=== PATIENT | male | born 1945 | race Caucasian/White ===

== ENCOUNTER 2022-07-30 12:56 | Outpatient (CLI) | payer MEDICARE, BC, SELFPAY | END 2022-07-30 12:57 | disposition home or self-care (01) | PROVIDERS: PCP Family Medicine; Visit Provider Family Medicine | DX: M54.16 Radiculopathy, lumbar region (principal); M51.36 Other intervertebral disc degeneration, lumbar region | CPT/HCPCS: 64483; 64484; J1100; Q9966 ==

== ENCOUNTER 2023-11-04 09:27 | Outpatient (CLI) | payer MEDICARE, BC, SELFPAY | END 2023-11-04 09:28 | disposition home or self-care (01) | LOC: INJ CL 09:29 | PROVIDERS: PCP Family Medicine; Visit Provider Family Medicine | DX: M54.16 Radiculopathy, lumbar region (principal); M51.36 Other intervertebral disc degeneration, lumbar region | CPT/HCPCS: 64483; 64484; J1100; Q9966 ==

== ENCOUNTER 2024-03-19 13:45 | Outpatient (CLI) | payer MEDICARE, BC, SELFPAY | END 2024-03-19 13:46 | disposition home or self-care (01) | LOC: INJ CL 13:45 | PROVIDERS: Visit Provider Family Medicine | DX: M54.16 Radiculopathy, lumbar region (principal); M51.36 Other intervertebral disc degeneration, lumbar region | CPT/HCPCS: 64483; 64484; J1100; Q9966 ==

== ENCOUNTER 2024-10-05 09:24 | Outpatient (CLI) | payer MEDICARE, BC, SELFPAY | END 2024-10-05 09:25 | disposition home or self-care (01) | LOC: INJ CL 09:26 | PROVIDERS: Visit Provider Family Medicine | DX: M54.16 Radiculopathy, lumbar region (principal); M51.369 Other intervertebral disc degeneration, lumbar region without mention of lumbar back pain or lower extremity pain | CPT/HCPCS: 64483; 64484; J1100; Q9966 ==

== ENCOUNTER 2025-03-01 12:45 | Outpatient (CLI) | payer MEDICARE, BC, SELFPAY | END 2025-03-01 12:46 | disposition home or self-care (01) | LOC: INJ CL 12:47 | PROVIDERS: Visit Provider Family Medicine | DX: M54.16 Radiculopathy, lumbar region (principal); M51.369 Other intervertebral disc degeneration, lumbar region without mention of lumbar back pain or lower extremity pain | CPT/HCPCS: 64483; 64484; Q9966 ==

== ENCOUNTER 2025-03-17 08:19 | Emergency (ER) | payer MEDICARE, BC, SELFPAY ==
--- OUTSIDE RECORDS SUMMARY | 2025-03-04 11:00 | XMS_ITS | Encounter Summary ---
Author Organization [facility] Address [address] [place] [id number] Care Team Providers Care Voice Pathologist Name Role Phone Tiffanie Weston M.D. Primary Care Provider [phone] Reason for Visit * Reason Onset Date Comments Pre-visit Intake 03/04/2025 * Appointment Request (Routine) - Authorized Specialty Diagnoses / Procedures Referred By Mj garcia Referred To Contact Cardiovascular Disease Referral ID Status Reason Start Date Expiration Date V isits Requested Visits Authorized [id number] Authorized 12/13/2024 03/15/2026 1 1 Encounter Details Date Type Department Care Team (Latest Contact Info) Description 03/04/2025 11:00 AM CDT Clinical Communication Virtual Review in [place], [place] [address] [place] [address] Pre-visit Intake Social History Tobacco Use Types Packs/Day Years Used Date Smoking Tobacco: Former Cigarettes 1.5 28.1 0 11/09/1965 - 12/08/1991 Passive Smoke Exposure: Past Smokeless Tobacco: Former Chew Quit: 12/08/1991 Tobacco Cessation:Counseling Given: Not Answered Alcohol Use Standard Drinks/Week Comments Yes 6 (1 standard drink = 0.6 oz pure alcohol) I enjoy a drink once and a while [facility] Utilities Answer Date Recorded In the past 12 months has th e [employer], gas, oil, or water company threatened to shut off services in your home? No 05/10/2024 Humiliation, Afraid, Rape, and Kick questionnair e Answer Date Recorded Within the last year, have y ou been afraid of your partner or ex-partner? No 01/07/2024 Within the last year, have y ou been humiliated or emotionally abused in other ways by your partner or ex-partner? No Within the last year, have y ou been kicked, hit, slapped, or otherwise physically hurt by your partner or ex-partner? No 01/07/2024 Within the last year, have y ou been raped or forced to have any kind of sexual activity by your partner or ex-partner? No 01/07/2024 Hunger Vital Sign Answer Date Recorded Within the past 12 months, y ou worried that your food would run out before you got the money to buy more. Never true 05/10/20 24 Within the past 12 months, t he food you bought just didn't last and you didn't have money to get more. Never true 05/10/2024 PRAPARE - Transportation Answer Date Re corded In the past 12 months, has l ack of transportation kept you from medical appointments or from getting medications? No 04/13 In the past 12 months, has l ack of transportation kept you from meetings, work, or from getting things needed for daily living? No 05/10/2024 Housing Stability Answer Date Recorded What is your living situation today? I have a [facility] place to live 05/10/2024 Education Answer Date Recorded What is the highest level of school you have completed or the highest degree you have received? 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 [address] [place] [phone] 05/19/2025 11:00 AM CDT Appointment Department of Radiology in [address] [phone] Natalie Holland APRN, C.N.Moises., M.S.N. [address] [place] [phone] Discharge Disposition: Home or Self Care 05/20/2025 8:45 AM CDT Clinical Communication Virtual Review in [address] [phone] 06/02/2025 9:00 AM CDT Virtual Visit Department of Urology in [place], [place] [address] [place] [phone] Natalie Holland APRN, C.N.P., M.S.N. [address] [place] [phone] documented as of this encounter Visit Diagnoses Not on filedocumented in this encounter Care Teams Voice Pathologist Relationship Specialty Start Date End Date Tiffanie Weston M.D. [address] [place] [phone] PCP - General Family Medicine 09/06/24 documented as of this encounter
--- OUTSIDE RECORDS SUMMARY | 2025-03-08 07:58 | XMS_ITS | Encounter Summary ---
Author Organization [facility] Address [address] [place] [address] Care Team Providers Care Claim Processing Specialist Name Role Phone Tiffanie Weston M.D. Primary Care Provider Encounter Details Date Type Department Care Team (Latest Contact Info) Description 03/08/2025 7:58 AM CDT - 03/08/2025 9:49 AM CDT Hospital Encounter Department of Laboratory Medicine and Pathology, [facility] in [place], [place] [address] [place] [address] Erwin Payne M.D. [address] [place] [address] Cardiomyopathy Dilated (HCC) Discharge Disposition: Home or Self Care Social History Tobacco Use Types Packs/Day Years Used Date Smoking Tobacco: Former Cigarettes 1.5 28.1 0 11/09/1965 - 12/08/1991 Passive Smoke Exposure: Past Smokeless Tobacco: Former Chew Quit: 12/08/1991 Alcohol Use Standard Drinks/Week Comments Yes 6 (1 standard drink = 0.6 oz pure alcohol) I enjoy a drink once and a while [facility] Utilities Answer Date Recorded In the past 12 months has e [employer], gas, oil, or water [employer] threatened to shut off services in your [...] your living situation today? I have a [facility] place to live 05/10/2024 Education Answer Date Recorded What is the highest level of school you have completed or the highest degree you have received? 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 budesonide 0.6 mg capsule / nasal rinse Empty the contents of 1 capsule in 8 oz of saline using a clean sinus rinse bottle. Irrigate each nostril two times daily.Do not swallow capsules 180 capsule 3 01/14/2024 cetirizine (ZyrTEC) 10 mg tablet Take 10 mg by mouth as needed. cholecalciferol, vitamin D3, 25 mcg (1,000 Unit) tablet Take 25 mcg by mouth daily. gabapentin (Neurontin) 300 mg capsule Take 300-600 mg by mouth. 09/23/2024 meclizine (Antivert) 25 mg tablet Take 1 tablet (25 mg total) by mouth 3 (three) times a day as needed for dizziness. 30 tablet 11/01/2024 multivitamin capsule Take 1 capsule by mouth every other day. Men's One a day mupirocin (Bactroban) 2 % ointment ADD 1 INCH RIBBON TO NASAL RINSE BOTTLE TWICE DAILY 22 g 3 07/09/2024 mupirocin (Bactroban) 2 % ointment Apply 1 Application topically 2 (two) times a day for [address] 1 inch ribbon in 8oz of warm saline in rinse bottle. 30 g 2 02/21/2025 sodium chloride-sodium bicarbonate (NEILMED SINUS RINSE) nasal rinse Administer 1 Application into each nostril as needed for congestion. Use water that is either sterile, distilled, or previously boiled for preparations; do not use tap water. 11/24/2023 spironolactone (Aldactone) 25 mg tablet TAKE 1 TABLET DAILY 90 tablet 3 11/15/2024 tadalafiL (Cialis) 5 mg tablet Take 1 tablet (5 mg total) by mouth daily. Can take up to 20 mg 1 hour prior prior to anticipated sexual activity. Do not exceed 20 mg in 24 hours. 90 tablet 3 05/01/2023 vitamin E 180 mg (400 Unit) capsule Take 180 mg by mouth every other day. finasteride (Proscar) 5 mg tablet Take 1 tablet (5 mg total) by mouth daily. 90 tablet 3 09/01/2024 5 lisinopriL 10 mg tablet TAKE 1 TABLET DAILY 90 tablet 3 12/13/2024 5 tamsulosin (Flomax) 0.4 mg 24 hr capsule Take 1 capsule (0.4 mg total) by mouth daily. 90 capsule 3 09/01/2024 5 documented as of this encounter Plan of Treatment Upcoming Encounters Date Type Department Care Team (Latest Contact Info) Description 05/19/2025 10:10 AM CDT Appointment Department of Laboratory Medicine in [address] [phone] Natalie Holland APRN C.N.P., M.S.N. [address] [place] [phone] 05/19/2025 11:00 AM CDT Appointment Department of Radiology in [address] [phone] Natalie Holland APRN, C.N.P., M.S.N. [address] [place] [phone] Discharge Disposition: Home or Self Care 05/20/2025 8:45 AM CDT Clinical Communication Virtual Review in [address] [phone] 06/02/2025 9:00 AM CDT Virtual Visit Department of Urology in [place], [place] [address] [place] [phone] Natalie Holland APRN, C.N.P., M.S.N. [address] [place] [phone] documented as of this encounter Procedures Procedure Name Priority Date/Time Associated Diagnosis Comments NT-PRO B-TYPE NATRIURETIC PEPTIDE (BNP), S Routine 03/08/2025 8:10 AM CDT Cardiomyopathy Dilated (HCC) BUN (BLOOD UREA NITROGEN), S/P Routine 03/08/2025 8:10 AM CDT Cardiomyopathy Dilated (HCC) SODIUM, S/P Routine 03/08/2025 8:10 AM CDT Cardiomyopathy Dilated (HCC) POTASSIUM, S/P Routine 03/08/2025 8:10 AM CDT Cardiomyopathy Dilated (HCC) CREATININE WITH EGFR, S/P Routine 03/08/2025 8:10 AM CDT Cardiomyopathy Dilated (HCC) BICARBONATE, B/S/P Routine 03/08/2025 8: 10 AM CDT Cardiomyopathy Dilated (HCC) documented in this encounter Results * NT-Pro B-Type Natriuretic Peptide (BNP) (03/08/2025 8:10 AM CDT) Pathologist [facility] NT-Pro BNP 195 <=540 pg/mL 03/08/2025 10:28 AM CDT DTL Comment: NT-proBNP values less than 300 pg/mL have a 99% negative predictive value for excluding acute congestive heart failure. A cutoff of 1200 pg/mL for patients with an eGFR<60 yields a diagnostic sensitivity and specificity of 89% and 72% for acute congestive heart failure. A diagnostic NT-proBNP cutoff of 1800 pg/mL has been suggested in adults over 75 years of age in the absence of renal failure. Blood (Blood, Venous) 03/08/2025 8:10 AM CDT 03/08/2025 8:35 AM CDT us Erwin Payne M.D. LAB BLOOD ADD-ON Final Re sult [facility] [address] [place] [address], [place] DTL [facility] [address] [place] [address] * Potassium (03/08/2025 8:10 AM CDT) Potassium, S 4.5 3.6 - 5.2 mmol/L 03/08/2025 10:28 AM CDT DTL Blood (Blood, Venous) 03/08/2025 8:10 AM CDT 03/08/2025 8:35 AM CDT us Erwin Payne M.D. LAB BLOOD ADD-ON Final Re sult [facility] [address] 200 [place] [address] * Bicarbonate (03/08/2025 8:10 AM CDT) Bicarbonate, S 24 22 - 29 mmol/L 03/08/2025 10:28 AM CDT DTL Blood (Blood, Venous) 03/08/2025 8:10 AM CDT 03/08/2025 8:35 AM CDT Erwin Payne M.D. LAB BLOOD ADD-ON Final Re sult Performing Organization Address [facility] Co de Phone Number [facility] 200 [place], [place] [address] [place] [address] 200 [place] [address] * BUN (Blood Urea Nitrogen) (03/08/2025 8:10 AM CDT) Pathologist [facility] BUN (Blood Urea Nitrogen), S 18 8 - 24 mg/dL 03/08/2025 10:28 AM CDT DTL Blood (Blood, Venous) 03/08/2025 8:10 AM CDT 03/08/2025 8:35 AM CDT us Erwin Payne M.D. LAB BLOOD ADD-ON Final Re sult Performing Organization Address City/[facility]/ZIP Co de Phone Number [facility] [address] [place] [address], [place] [facility] 200 [place] [phone] * Creatinine with Estimated GFR (03/08/2025 8:10 AM CDT) Creatinine 1.14 0.74 - 1.35 mg/dL 03/08/2025 10:28 AM CDT DTL Estimated GFR (eGFR) 65 >=60 mL/min/BSA 03/08/2025 10:28 AM CDT DTL Comment: Estimated GFR calculated using the 2020 CKD_EPI creatinine equation. Blood (Blood, Venous) 03/08/2025 8:10 AM CDT 03/08/2025 8:35 AM CDT us Erwin Payne M.D. LAB BLOOD ADD-ON Final Re sult Performing Organization Address City/[facility]/ZIP Co de Phone Number [facility] [address] [facility] 200 [place] [address] * Sodium (03/08/2025 8:10 AM CDT) Sodium, S 140 135 - 145 mmol/L 03/08/2025 10:28 AM CDT DT Blood (Blood, Venous) 03/08/2025 8:10 AM CDT 03/08/2025 8:35 AM CDT us Erwin Payne M.D. LAB BLOOD ADD-ON Final Re sult [facility] 200 [place] [address] documented in this encounter Visit Diagnoses Diagnosis Cardiomyopathy Dilated (HCC) documented in this encounter Care Teams Claim Processing Specialist Relationship Specialty Start Date End Date Tiffanie Weston M.D. [address] [place] [phone] PCP - General Family Medicine 09/06/24 documented as of this encounter
--- OUTSIDE RECORDS SUMMARY | 2025-03-08 09:50 | XMS_ITS | Encounter Summary ---
Author Organization [facility] Address [address] [place] [address] Care Team Providers Care Operating Systems Specialist Name Role Phone Tiffanie Weston M.D. Primary Care Provider [phone] Reason for Referral * Outpatient (Routine) - Authorized Specialty Diagnoses / Procedures Referred By Contmichael t Referred To Contact Diagnoses Cardiomyopathy Dilated (HCC) Procedures ECG Heart rhythm monitor (Holter) Erwin Payne M.D. [address] [place] [address] Phone: tel: fax: Health System Referral ID Status Reason Start Date Expiration Date V isits Requested Visits Authorized [id number] Authorized 08/23/2024 08/23/2025 1 1 Reason for Visit * Outpatient (Routine) - Authorized Specialty Diagnoses / Procedures Referred By Contac t Referred To Contact Diagnoses Cardiomyopathy Dilated (HCC) Procedures ECG Heart rhythm monitor (Holter) Erwin Payne M.D. [address] [place] [address] Phone: tel: fax: Health System Referral ID Status Reason Start Date Expiration Date V isits Requested Visits Authorized [id number] Authorized 08/23/2024 08/23/2025 1 1 Encounter Details Date Type Department Care Team (Latest Contact Info) Description 03/08/2025 9:50 AM CDT - 03/08/2025 10:10 AM CDT Hospital Encounter Department of Cardiovascular Diseases in [place], [place] [address] [place] [phone] Erwin Payne M.D. [address] [place] [phone] Cardiomyopathy Dilated (HCC) Discharge Disposition: Home or Self Care Social History Tobacco Use Types Packs/Day Years Used Date Smoking Tobacco: Former Cigarettes 1.5 28.1 0 11/09/1965 - 12/08/1991 Passive Smoke Exposure: Past Smokeless Tobacco: Former Chew Quit: 12/08/1991 Alcohol Use Standard Drinks/Week Comments Yes 6 (1 standard drink = 0.6 oz pure alcohol) I enjoy a drink once and a while [facility] [employer] Answer Date Recorded In the past 12 months has [facility] [employer], gas, oil, or water [employer] threatened to shut off services in your [...] your living situation today? I have a [facility] place to live 05/10/2024 Education Answer Date Recorded What is the highest level of school you have completed or the highest degree you have received? 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 30 g 2 02/21/2025 5 sodium chloride-sodium bicarbonate (NEILMED SINUS RINSE) nasal [...] CDT Appointment Department of Laboratory Medicine in [address] [phone] Natalie Holladn APRN, C.N.P., M.S.N. 200 [place] [phone] 05/19/2025 11:00 AM CDT Appointment Department of Radiology in [address] [place] [phone] Natalie Holland APRN, C.N.P., M.S.N. [address] [place] [phone] Discharge Disposition: Home or Self Care 05/20/2025 8:45 AM CDT Clinical Communication Virtual Review in [place], [place] 200 [place] [phone] 06/02/2025 9:00 AM CDT Virtual Visit Department of Urology in [place], [place] [address] [place] [phone] Natalie Holland APRN, C.N.P., M.S.N. [address] [place] [phone] documented as of this encounter Procedures Procedure Name Priority Date/Time Associated Diagnosis Comments HOLTER MONITOR - IN CLINIC WAITER/WAITRESS FORMAL Routine 03/09/2025 10:26 PM CDT Cardiomyopathy Dilated (HCC) documented in this encounter Results * HOLTER MONITOR - IN CLINIC WAITER/WAITRESS FORMAL (03/09/2025 10:26 PM CDT) Min Heart Rate 43 bpm INFOB IONIC MOME Max Heart Rate 81 bpm INFOB IONIC MOME Mean Heart Rate 62 bpm INFOBIONIC MOME VE Total Beats 15010 count INFOB IONIC MOME VE Percent Beats 28 percent INFOBIONIC MOME SVE Total Beats 383 count INFOBIONIC MOME SVE Percent Beats less than 1 percent INFOBIONIC MOME Holter Pauses 62 count INFOBI ONIC MOME Pause Longest 2.1s duration INFOBI ONIC MOME AF Count 0 count INFOBIONIC MOME AF Duration 0 duration INFOBION IC MOME AF [place] 0 percent INFOBIONIC MOME Symptom Count 1 count INFOBI ONIC MOME 03/08/2025 9:56 AM CDT Narrative INFOBIONIC MOME - 03/10/2025 8:38 AM CDT 1. The basic rhythm was sinus. The total analyzed time was 23h 49m. The heart rate varied from 43 to 81 bpm. The average HR was 62 bpm. 62 pauses were seen, the longest being 2.1s in duration. Pauses included compensatory pauses and pauses following atrial runs. 2. Premature ventricular complexes were noted singly, fused, in pairs, in bigeminal patterns, in trigeminal patterns, in one thousand three hundred one 3 beat ventricular runs with a maximum rate of 207 bpm, in eight 4 beat accelerated idioventricular runs with a maximum rate of 98 bpm, and in three hundred three 4-8 beat non- sustained ventricular tachycardia runs with a maximum rate of 185 bpm. There were 25,352 PVCs recorded with a PVC burden of 28%. 3. Premature supraventricular complexes were noted singly, aberrantly, in pairs, and in seven 3-5 beat atrial runs, at times with aberrancy, with a maximum rate of 119 bpm. There were 383 PACs recorded with a PAC burden of less than 1%. 4. A total of 1 patient triggered event was noted, which included other. The basic rhythm was sinus at 83 bpm. During or around these events, PVCs were seen singly, in bigeminal patterns, in trigeminal patterns, in nineteen 3 beat ventricular runs with rates ranging from 126 to 190 bpm, in one 4 beat accelerated idioventricular run at 86 bpm, and in six 4-5 beat non-sustained ventricular tachycardia runs with rates ranging from 123 to 153 bpm. Histology Aide: ASHLEY Albarran Procedure Note Levon Marte Jr., M.D. - 03/10/2025 1. The basic rhythm was sinus. The total analyzed time was 23h 49m. Theheart rate varied from 43 to 81 bpm. The average HR was 62 bpm. 62 pauseswere seen, the longest being 2.1s in duration. Pauses includedcompensatory pauses and pauses following atrial runs. 2. Premature ventricular complexes were noted singly, fused, in pairs, inbigeminal patterns, in trigeminal patterns, in one thousand three hundredone 3 beat ventricular runs with a maximum rate of 207 bpm, in eight 4beat accelerated idioventricular runs with a maximum rate of 98 bpm, and in three hundred three 4-8 beatnon- sustained ventricular tachycardia runs with a maximum rate of 185 bpm.There were 25,352 PVCs recorded with a PVC burden of 28%. 3. Premature supraventricular complexes were noted singly, aberrantly, inpairs, and in seven 3-5 beat atrial runs, at times with aberrancy, with amaximum rate of 119 bpm. There were 383 PACs recorded with a PAC burden ofless than 1%. 4. A total of 1 patient triggered event was noted, which included other.The basic rhythm was sinus at 83 bpm. During or around these events, PVCswere seen singly, in bigeminal patterns, in trigeminal patterns, innineteen 3 beat ventricular runs with rates ranging from 126 to 190 bpm, in one 4 beat acceleratedidioventricular run at 86 bpm, and in six 4-5 beat non-sustainedventricular tachycardia runs with rates ranging from 123 to 153 bpm. Histology Aide: ASHLEY Albarran Erwin Payne M.D. [facility] [employer] Edited Result - Final INFOBIONIC GABRIELLA ASIF documented in this encounter Visit Diagnoses Diagnosis Cardiomyopathy Dilated (HCC) documented in this encounter Care Teams Operating Systems Specialist Relationship Specialty Start Date End Date Tiffanie Weston M.D. [address] [phone] PCP - General Family Medicine 09/06/24 documented as of this encounter
--- OUTSIDE RECORDS SUMMARY | 2025-03-08 10:11 | XMS_ITS | Encounter Summary ---
Author Organization [facility] Address [address] [place] [address] Care Team Providers Care Digital Media Manager Name Role Phone Tiffanie Weston M.D. Primary Care Provider [phone] Reason for Referral * Cardiovascular-Diagnostic (Routine) - Closed Specialty Diagnoses / Procedures Referred By Mj garcia Referred To Contact Diagnoses Cardiomyopathy Dilated (HCC) Procedures Echo Transthoracic (TTE) Erwin Payne M.D. [address] [place] [address] Phone: tel: fax: [facility] Referral ID Status Reason Start Date Expiration Date Visits Re quested Visits Authorized [id number] Closed 08/23/2024 08/23/2025 1 1 Reason for Visit * Cardiovascular-Diagnostic (Routine) - Closed Specialty Diagnoses / Procedures Referred By Contac t Referred To Contact Diagnoses Cardiomyopathy Dilated (HCC) Procedures Echo Transthoracic (TTE) Erwin Payne M.D. [address] [place] [address] Phone: tel: fax: [facility] Referral ID Status Reason Start Date Expiration Date Visits Re quested Visits Authorized [id number] Closed 08/23/2024 08/23/2025 1 1 Encounter Details Date Type Department Care Team (Latest Contact Info) Description 03/08/2025 10:11 AM CDT - 03/08/2025 11:59 PM CDT Hospital Encounter Department of Cardiovascular Diseases in [place], [place] [address] [place] [phone] Erwin Payne M.D. [address] [place] [phone] Cardiomyopathy Dilated (HCC) Discharge Disposition: Home or Self Care Social History Tobacco Use Types Packs/Day Years Used Date Smoking Tobacco: Former Cigarettes 1.5 28.1 0 11/09/1965 - 12/08/1991 Passive Smoke Exposure: Past Smokeless Tobacco: Former Chew Quit: 12/08/1991 Alcohol Use Standard Drinks/Week Comments Yes 6 (1 standard drink = 0.6 oz pure alcohol) I enjoy a drink once and a while [facility] [employer] Answer Date Recorded In the past 12 months has [facility] [employer], gas, oil, or water [employer] threatened to shut off services in your [...] your living situation today? I have a [facility] place to live 05/10/2024 Education Answer Date Recorded What is the highest level of school you have completed or the highest degree you have received? Some college, no degree 01/17/2019 Sex and Gender Information Value Date Recorded Sex Assigned at Male 08/22/2021 7:51 AM HAT CHECKER Legal Sex Male 10:26 AM HAT CHECKER Gender Identity Male 01/17/2019 7:07 PM CDT [...] CDT Appointment Department of Laboratory Medicine in [address] [phone] Natalie Holland APRN, C.N.P., M.S.N. [address] [place] [address] 05/19/2025 11:00 AM CDT Appointment Department of Radiology in [address] [place] [phone] Natalie Holland APRN, C.N.P., M.S.N. [address] [place] [phone] Discharge Disposition: Home or Self Care 05/20/2025 8:45 AM CDT Clinical Communication Virtual Review in [place], [place] [address] [place] [address] 06/02/2025 9:00 AM CDT Virtual Visit Department of Urology in [place], [place] [address] [place] [phone] Natalie Holland APRN, C.N.P., M.S.N. [address] [place] [phone] documented as of this encounter Procedures Procedure Name Priority Date/Time Associated Diagnosis Comments (TTE) 2D LIMITED WITH COLOR , DOPPLER AND CONTRAST Routine 03/08/2025 12:06 PM CDT Cardiomyopathy Dilated (HCC) documented in this encounter Results * (TTE) 2D LIMITED WITH COLOR , DOPPLER AND CONTRAST (03/08/2025 12:06 PM CDT) Ejection Fraction 33 MC CV EIMS Sinus of Valsalva 43 MC CV EIMS Mid-Ascending Aorta 40 MC CV EIMS LV Mass Index 109 MC CV EIMS LV End-Diastolic Diameter 62 MC CV EIMS LV End-Systolic Diameter 52 MC CV EIMS LV End-Diastolic Volume 203 MC CV EIMS LV End-Systolic Volume 130 MC CV EIMS MV E Velocity 0.3 MC CV EIMS MV A Velocity 0.5 MC CV EIMS MV E/A 0.6 MC CV EIMS MV e' Velocity Medial 0.06 MC CV EIMS MV e' Velocity Lateral 0.08 MC CV EIMS MV E/e' Medial 5 MC CV EIMS MV E/e' Lateral 3.8 MC CV EIMS Left ventricular stroke volume index 46 MC CV EIMS Cardiac Output 4.66 MC CV EIMS Cardiac Index 2.24 MC CV EIMS LV Interventricular Septal Wall Thickness 9 MC CV EIMS LV Posterior Wall Thickness 9 MC CV EIMS LV Relative Wall Thickness 29 MC CV EIMS TAPSE 25 MC CV EIMS Tricuspid Annular S 0.15 MC CV EIMS TR Vmax 2.8 MC CV EIMS Estimated RA Pressure (Echo RAP) 5 MC CV EIMS RV Systolic Pressure (with Echo RAP) 36 MC CV EIMS Anatomical Region Laterality Modality Echocardiography 03/08/2025 10:3 9 AM CDT Impressions 03/08/2025 12:03 PM CDT discussed with Dr. Payne. -JBG Findings Echocardiogram performed per left ventricular function protocol. Attempts were made to optimize the echocardiographic images and two or more left ventricular segments were not visualized adequately to evaluate cardiac structure. The patient's current allergies and medications have been screened. Intravenous Definity ultrasound enhancement agent(s) administered to enhance endocardial border definition. Imaging enhancement agent administered per Echocardiography Contrast Administration Protocol Reference Document [id number] Rev 12/24/2024. Patient met an inclusion criterion and did not have contraindications in screening sections. CO-SIGNATURE:The electronic signature of the responsible supervising echo physician in this report also provides authentication within the electronic health record for the medication(s) initiated in [facility] and listed within this report. These medications were administered for the performance of this echo procedure and were given per institutional protocol. LEFT VENTRICLE:Moderate-severely enlarged left ventricular chamber size. Normal left ventricular wall thickness. Calculated 2-D linear left ventricular ejection fraction 33%. Calculated 2-D biplane volumetric left ventricular ejection fraction of 36%. Moderate-severe generalized left ventricular hypokinesis. Left ventricular stroke volume index 46 ml/m2. Left ventricular cardiac index 2.24 l/min/m2. Prominent left ventricular trabeculation. Anomalous left ventricular chord. Grade 1/3 left ventricular diastolic dysfunction, consistent with low to normal left ventricular filling pressure. RIGHT VENTRICLE:Mildly enlarged right ventricular chamber size. Mildly reduced right ventricular systolic function. Estimated right ventricular systolic pressure 36 mmHg (systolic blood pressure 111 mmHg). ATRIA:Severely enlarged left atrial size by visual estimate. Enlarged right atrial size by visual estimate. CARDIAC VALVES:Trileaflet aortic valve. Mildly thickened aortic valve. No aortic valve regurgitation. Mildly thickened mitral valve. Mild mitral valve regurgitation. Normal tricuspid valve. Trivial tricuspid valve regurgitation. OTHER ECHO FINDINGS:Small inferior vena cava size with normal inspiratory collapse (>50%). Mildly enlarged sinus of Valsalva diameter of 43 mm. No intracardiac mass or thrombus, but the left atrial appendage cannot be visualized adequately with transthoracic echo to exclude thrombus in this location. Prominent epicardial fat layer. No pericardial effusion. For the complete report, see the Order-Level Documents. Narrative 03/08/2025 12:03 PM CDT For the complete report, see the Order-Level Documents. Hemodynamics Heart Rate: 49 BPM Blood Pressure: 111 / 75 mmHg ECG: Sinus rhythm with ectopics, Bradycardia Final Impressions 1. Moderate-severely enlarged left ventricular chamber size. Calculated ejection fraction 33 % by 2D linear method and 36 % by biplane method. 2. Left ventricular cardiac index 2.24 l/min/m2. 3. Moderate-severe generalized left ventricular hypokinesis. 4. Grade 1/3 left ventricular diastolic dysfunction, consistent with low to normal left ventricular filling pressure. 5. Mildly enlarged right ventricular chamber size with mildly reduced systolic function. 6. Estimated right ventricular systolic pressure 36 mmHg (systolic blood pressure 111 mmHg). 7. Mild mitral valve regurgitation , functional. 8. Small inferior vena cava size with normal inspiratory collapse (>50%). 9. No pericardial effusion. 10. Compared to the report of 08/23/2024 the following changes have occurred: Although reported ejection fraction is lower, interval change is minimal. Estimated right ventricular systolic pressure is slightly higher. Side by side comparison of images performed. Comments Procedure Note Roddy Alvarado M.D. - 03/08/2025 For the complete report, see the Order-Level Documents. Hemodynamics Heart Rate: 49 BPM Blood Pressure: 111 / 75 mmHg ECG: Sinus rhythm with ectopics, Bradycardia Final Impressions 1. Moderate-severely enlarged left ventricular chamber size. Calculatedejection fraction 33 % by 2D linear method and 36 % by biplane method. 2. Left ventricular cardiac index 2.24 l/min/m2. 3. Moderate-severe generalized left ventricular hypokinesis. 4. Grade 1/3 left ventricular diastolic dysfunction, consistent with lowto normal left ventricular filling pressure. 5. Mildly enlarged right ventricular chamber size with mildly reducedsystolic function. 6. Estimated right ventricular systolic pressure 36 mmHg (systolic bloodpressure 111 mmHg). 7. Mild mitral valve regurgitation , functional. 8. Small inferior vena cava size with normal inspiratory collapse(>50%). 9. No pericardial effusion. 10. Compared to the report of 08/23/2024 the following changes haveoccurred: Although reported ejection fraction is lower, interval change isminimal. Estimated right ventricular systolic pressure is slightly higher.Side by side comparison of images performed. Comments Findings discussed with Dr. Payne. -JB Findings Echocardiogram performed per left ventricular function protocol. Attemptswere made to optimize the echocardiographic images and two or more leftventricular segments were not visualized adequately to evaluate cardiacstructure. The patient's current allergies and medications have beenscreened. Intravenous Definity ultrasound enhancement agent(s)administered to enhance endocardial border definition. Imaging enhancementagent administered per Echocardiography Contrast Administration ProtocolReference Document [id number] Rev 12/24/2024. Patient met an inclusioncriterion and did not have contraindications in screening sections. CO-SIGNATURE:The electronic signature of the responsible supervising echophysician in this report also provides [facility] for the medication(s) initiated in [facility] andlisted within this report. These medications were administered for theperformance of this echo procedure and were given per institutionalprotocol. LEFT VENTRICLE:Moderate-severely enlarged left ventricular chamber size.Normal left ventricular wall thickness. Calculated 2-D linear leftventricular ejection fraction 33%. Calculated 2-D biplane volumetric leftventricular ejection fraction of 36%. Moderate-severe generalized leftventricular hypokinesis. Left ventricular stroke volume index 46 ml/m2.Left ventricular cardiac index 2.24 l/min/m2. Prominent left ventriculartrabeculation. Anomalous left ventricular chord. Grade 1/3 leftventricular diastolic dysfunction, consistent with low to normal leftventricular filling pressure. RIGHT VENTRICLE:Mildly enlarged right ventricular chamber size. Mildlyreduced right ventricular systolic function. Estimated right ventricularsystolic pressure 36 mmHg (systolic blood pressure 111 mmHg). ATRIA:Severely enlarged left atrial size by visual estimate. Enlargedright atrial size by visual estimate. CARDIAC VALVES:Trileaflet aortic valve. Mildly thickened aortic valve. Noaortic valve regurgitation. Mildly thickened mitral valve. Mild mitralvalve regurgitation. Normal tricuspid valve. Trivial tricuspid valveregurgitation. OTHER ECHO FINDINGS:Small inferior vena cava size with normal inspiratorycollapse (>50%). Mildly enlarged sinus of Valsalva diameter of 43 mm. Nointracardiac mass or thrombus, but the left atrial appendage cannot bevisualized adequately with transthoracic echo to exclude thrombus in thislocation. Prominent epicardial fat layer. No pericardial effusion. For the complete report, see the Order-Level Documents. Erwin Payne M.D. CV ECHO PROCEDURES Final Result documented in this encounter Visit Diagnoses Diagnosis Cardiomyopathy Dilated (HCC) documented in this encounter Administered Medications Inactive Administered Medications - up to 3 most recent administrations Medication Order MAR Action Action Date Dose Rate Site perflutren lipid microspheres injection (Definity) intravenous, Once in imaging, contrast, Starting on Tu03/08/25 at 1129, For 1 dose, Intraprocedure - Diagnostic, See protocol. Given 03/08/2025 11:49 AM CDT 2.5 mL documented in this encounter Care Teams Digital Media Manager Relationship Specialty Start Date End Date Tiffanie Weston M.D. [address] [place] [phone] PCP - General Family Medicine 09/06/24 documented as of this encounter
--- OUTSIDE RECORDS SUMMARY | 2025-03-09 10:15 | XMS_ITS | Encounter Summary ---
Author Organization [facility] Address [address] [place] [address] Care Team Providers Care Commercial Relief Driver Name Role Phone Tiffanie Weston M.D. Primary Care Provider [phone] Reason for Referral * Cardiovascular-Diagnostic (Routine) - Authorized Specialty Diagnoses / Procedures Referred By Mj garcia Referred To Contact Diagnoses Cardiomyopathy Dilated (HCC) Bradycardia Beat Premature Ventricular Procedures Cardiopulmonary (VO2) Exercise Test Erwin Payne M.D. [address] [place] [address] Phone: tel: fax: [facility] Referral ID Status Reason Start Date Expiration Date V isits Requested Visits Authorized [id number] Authorized 03/09/2025 06/09/2026 1 1 * Cardiovascular-Diagnostic (Routine) - Authorized Specialty Diagnoses / Procedures Referred By Contac t Referred To Contact Diagnoses Cardiomyopathy Dilated (HCC) Bradycardia Beat Premature Ventricular Procedures Echo Transthoracic (TTE) Erwin Payne M.D. [address] [place] [address] Phone: tel: fax: [facility] Referral ID Status Reason Start Date Expiration Date V isits Requested Visits Authorized [id number] Authorized 03/09/2025 06/09/2026 1 1 * Outpatient (Routine) - Authorized Specialty Diagnoses / Procedures Referred By Contac t Referred To Contact Diagnoses Cardiomyopathy Dilated (HCC) Bradycardia Beat Premature Ventricular Procedures ECG 12 Lead AK EKG 12 LEAD W I&R [place] [address] Phone: tel: fax: [facility] Referral ID Status Reason Start Date Expiration Date V isits Requested Visits Authorized [id number] Authorized 03/09/2025 06/09/2026 1 1 * Outpatient (Routine) - Authorized Specialty Diagnoses / Procedures Referred By Contac t Referred To Contact Diagnoses Cardiomyopathy Dilated (HCC) Bradycardia Beat Premature Ventricular Procedures DX Chest AP or PA and Lateral 2 [place] [address] Phone: tel: fax: [facility] Referral ID Status Reason Start Date Expiration Date V isits Requested Visits Authorized [id number] Authorized 03/09/2025 06/09/2026 1 1 * Outpatient (Routine) - Authorized Specialty Diagnoses / Procedures Referred By Contac t Referred To Contact Cardiovascular Disease Diagnoses Cardiomyopathy Dilated (HCC) Bradycardia Beat Premature Ventricular [place] [address] Phone: tel: fax: [facility] Referral ID Status Reason Start Date Expiration Date V isits Requested Visits Authorized [id number] Authorized 03/09/2025 09/08/2026 1 1 Reason for Visit * Appointment Request (Routine) - Closed Specialty Diagnoses / Procedures Referred By Contmichael t Referred To Contact Cardiovascular Disease Diagnoses Cardiomyopathy Dilated (HCC) Erwin Payne M.D. [address] [place] [address] Phone: tel: fax: Referral ID Status Reason Start Date Expiration Date Visits Re quested Visits Authorized [id number] Closed 12/07/2024 03/09/2026 1 1 Encounter Details Date Type Department Care Team (Latest Contact Info) Description 03/09/2025 10:15 AM CDT Telemedicine Department of Cardiovascular Medicine in [place], [place] [address] [place] [address] Erwin Payne M.D. [address] [place] [phone] Cardiomyopathy Dilated (HCC) (Primary Dx); Bradycardia; Beat Premature Ventricular Social History Tobacco Use Types Packs/Day Years Used Date Smoking Tobacco: Former Cigarettes 1.5 28.1 0 11/09/1965 - 12/08/1991 Passive Smoke Exposure: Past Smokeless Tobacco: Former Chew Quit: 12/08/1991 Alcohol Use Standard Drinks/Week Comments Yes 6 (1 standard drink = 0.6 oz pure alcohol) I enjoy a drink once and a while [facility] Utilities Answer Date Recorded In the past 12 months has [facility] [employer], gas, oil, or water [employer] threatened to shut off services in your [...] your living situation today? I have a [facility] place to live 05/10/2024 Education Answer Date Recorded What is the highest level of school you have completed or the highest degree you have received? Some college, no degree 01/17/2019 Sex and Gender Information Value Date Recorded Sex Assigned at Male 08/22/2021 7:51 AM EQUIPMENT MECHANIC Legal Sex Male 10:26 AM EQUIPMENT MECHANIC Gender Identity Male 01/17/2019 7:07 PM CDT Sexual Orientation Straight 01/17/2019 7: 07 PM CDT documented as of this encounter Consult Notes * Erwin Payne M.D. - 03/09/2025 10:15 AM CDT [id number]-[id number]-FACE PHONE VISIT A phone call care discussion was completed consistent with [facility] institutional direction. This visit was performed by telephone call today. Erwin Payne M.D. for follow-up regarding bradycardia, PVCs and cardiomyopathy. HISTORY OF PRESENT ILLNESS Mr. Parveen Godinez is a 79 y.o. male who has a noted history of asymptomatic cardiomyopathy. This has been present for a few years. There has been moderate to severe LV dilatation with mildly reduced EF. He did very well on oxygen consumption treadmill last year with actually quite reasonable heart rate response. However he does have resting bradycardia with frequent PVCs. For that reason beta-barb therapy has been avoided. He has been on lisinopril and more recently added spironolactone with notable findings on some intermittent dry cough. He attributes this to a smoke and air quality. There is also history of chronic sinus disease. He endorses no problematic hypertension and in fact at times blood pressure can be low. He suffers from some vertigo but denies any syncope or presyncope. He has not been aware of any tachy palpitations. Denies any PND, orthopnea or problematic edema. Remains quite physically active only limited by some back discomfort. No dyspnea or chest discomfort.. Normal coronary angiogram in 2017 is noted. DIAGNOSTICS I have personally reviewed the patient's available current laboratory, imaging, and other diagnostic studies. Transthoracic echocardiogram was compared to previous echocardiogram and felt to be no different. He has moderate to severe LV enlargement with EF around 35%. Holter monitor is in process. EKG notingmarked sinus bradycardia with some premature ventricular complexes otherwise no significant change.His blood work looks great creatinine BUN is normal and his NT proBNP is within normal range. ASSESSMENT / PLAN #1 Cardiomyopathy Dilated (HCC) #2 Bradycardia #3 Beat Premature Ventricular . Overall this patient remains asymptomatic in the presence of a nonischemic cardiomyopathy. No significant change in cardiac function since last measured 6 months ago. Today I suggested the following.Stop lisinopril and after 72 hours start Entresto at low dose. Add Jardiance 10 mg daily to regimen. Reassess status at 1 year's time. FOLLOWUP AND TESTING: Scheduled for follow-up heart failure clinic visit in 1 year with the appropriate testing as order.. I spent 30 minutes in discussion with the patient/family. documented in this encounter Plan of Treatment Upcoming Encounters Date Type Department Care Team (Latest Contact Info) Description 05/19/2025 10:10 AM CDT Appointment Department of Laboratory Medicine in [address] [phone] Natalie Holland APRN, C.NTerry, M.S.N. [address] [place] [phone] 05/19/2025 11:00 AM CDT Appointment Department of Radiology in [address] [phone] Natalie Holland APRN, C.N.P., M.S.N. [address] [place] [phone] Discharge Disposition: Home or Self Care 05/20/2025 8:45 AM CDT Clinical Communication Virtual Review in [place], [place] [address] [place] [address] 06/02/2025 9:00 AM CDT Virtual Visit Department of Urology in [place], [place] [address] [place] [phone] Natalie Holland APRN, C.NRajiv., M.S.N. [address] [place] [phone] Scheduled Orders Name Type Priority Associated Diagnoses Order Schedule Sodium Lab Routine Cardiomyopathy Dilated (HCC) Bradycardia Beat Premature Ventricular Expected: 03/09/2026, Expires: 06/07/2026 Glucose, Fasting Lab Routine Cardiomyopathy Dilated (HCC) Bradycardia Beat Premature Ventricular Expected: 03/09/2026, Expires: 06/07/2026 Creatinine with Estimated GFR Lab Routine Cardiomyopathy Dilated (HCC) Bradycardia Beat Premature Ventricular Expected: 03/09/2026, Expires: 06/07/2026 AST (Aspartate Aminotransferase) Lab Routine Cardiomyopathy Dilated (HCC) Bradycardia Beat Premature Ventricular Expected: 03/09/2026, Expires: 06/07/2026 BUN (Blood Urea Nitrogen) Lab Routine Cardiomyopathy Dilated (HCC) Bradycardia Beat Premature Ventricular Expected: 03/09/2026, Expires: 06/07/2026 Lipid Panel Lab Routine Cardiomyopathy Dilated (HCC) Bradycardia Beat Premature Ventricular Expected: 03/09/2026, Expires: 06/07/2026 CBC with Differential, Blood Lab Routine Cardiomyopathy Dilated (HCC) Bradycardia Beat Premature Ventricular Expected: 03/09/2026, Expires: 06/07/2026 S-TSH (Thyroid-Stimulating Hormone - Sensitive) Lab Routine Cardiomyopathy Dilated (HCC) Bradycardia Beat Premature Ventricular Expected: 03/09/2026, Expires: 06/07/2026 DX Chest AP or PA and Lateral 2 Views Imaging RAD - Routine (most inpatients and all outpatients) Cardiomyopathy Dilated (HCC) Bradycardia Beat Premature Ventricular Expected: 03/09/2026, Expires: 06/07/2026 ECG 12 Lead ECG Routine Cardiomyopathy Dilated (HCC) Bradycardia Beat Premature Ventricular Expected: 03/09/2026, Expires: 06/07/2026 Bicarbonate Lab Routine Cardiomyopathy Dilated (HCC) Bradycardia Beat Premature Ventricular Expected: 03/09/2026, Expires: 06/07/2026 Potassium Lab Routine Cardiomyopathy Dilated (HCC) Bradycardia Beat Premature Ventricular Expected: 03/09/2026, Expires: 06/07/2026 NT-Pro B-Type Natriuretic Peptide (BNP) Lab Routine Cardiomyopathy Dilated (HCC) Bradycardia Beat Premature Ventricular Expected: 03/09/2026, Expires: 06/07/2026 Echo Transthoracic (TTE) Echocardiography Routine Cardiomyopathy Dilated (HCC) Bradycardia Beat Premature Ventricular Expected: 03/09/2026, Expires: 06/07/2026 Cardiopulmonary (VO2) Exercise Test Cardiac Services Routine Cardiomyopathy Dilated (HCC) Bradycardia Beat Premature Ventricular Expected: 03/09/2026, Expires: 06/09/2026 Scheduled Referrals Name Type Priority Associated Diagnoses Order Schedule Cardiovascular Disease office visit (clinic) [facility]; HF Clinic Outpatient Referral Routine Cardiomyopathy Dilated (HCC) Bradycardia Beat Premature Ventricular Expected: 03/09/2026, Expires: 06/07/2026 documented as of this encounter Visit Diagnoses Diagnosis Cardiomyopathy Dilated (HCC)- Primary Bradycardia Beat Premature Ventricular documented in this encounter Care Teams Commercial Relief Driver Relationship Specialty Start Date End Date Tiffanie Weston M.D. [address] [phone] PCP - General Family Medicine 09/06/24 documented as of this encounter
--- OUTSIDE RECORDS SUMMARY | 2025-03-17 08:22 | XMS_ITS | Encounter Summary ---
Author Organization [facility] Address [address] [place] [id number] Care Team Providers Care Delivery Clerk Name Role Phone Tiffanie Weston M.D. Primary Care Provider [phone] Reason for Visit * Reason Onset Date Comments Med Refill 03/09/2025 Encounter Details Date Type Department Care Team (Late st Contact Info) Description 03/10/2025 Refill Department of Urology in [place], [place] [address] [place] [phone] Natalie Holland APRN, C.N.P., M.S.N. [address] [place] [phone] Med Refill Social History Tobacco Use Types Packs/Day Years Used Date Smoking Tobacco: Former Cigarettes 1.5 28.1 0 11/09/1965 - 12/08/1991 Passive Smoke Exposure: Past Smokeless Tobacco: Former Chew Quit: 12/08/1991 Alcohol Use Standard Drinks/Week Comments Yes 6 (1 standard drink = 0.6 oz pure alcohol) I enjoy a drink once and a while [facility] Utilities Answer Date Recorded In the past 12 months has [employer], gas, oil, or water [employer] threatened to shut off services in your [...] your living situation today? I have a [facility] place to live 05/10/2024 Education Answer Date Recorded What is the highest level of school you have completed or the highest degree you have received? 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 [address] [place] [phone] 05/19/2025 11:00 AM CDT Appointment Department of Radiology in [address] [phone] Natalie Holland APRN, Cici.N.P., M.S.N. [address] [place] [phone] Discharge Disposition: Home or Self Care 05/20/2025 8:45 AM CDT Clinical Communication Virtual Review in [place], [place] [address] [place] [phone] 06/02/2025 9:00 AM CDT Virtual Visit Department of Urology in [place], [place] [address] [place] [phone] Natalie Holland APRN, C.N.P., M.S.N. [address] [place] [phone] documented as of this encounter Visit Diagnoses Not on filedocumented in this encounter Care Teams Delivery Clerk Relationship Specialty Start Date End Date Tiffanie Weston M.D. [address] [place] [phone] PCP - General Family Medicine 09/06/24 documented as of this encounter
--- OUTSIDE RECORDS SUMMARY | 2025-03-17 08:22 | XMS_ITS | Clinical Summary ---
Author Organization [facility] Address [address] [place] [address] Care Team Providers Care Floor Coverings Installer Name Role Phone Tiffanie Weston M.D. Primary Care Provider Source Comments Patient records contain information from all sites at [facility]. For routine questions regarding patient records, call [phone] during business hours, M-F 8:00 AM - 5:00 PM Central Time. Record requests for emergency care only can be directed to [phone] at any time.[facility] Allergies No known active allergies Medications * This document contains information received from the source organization and may not represent a complete record from that organization. cetirizine (ZyrTEC) 10 mg tablet Take 10 mg by mouth as needed. Active multivitamin capsule Take 1 capsule by mouth every other day. Men's One a day Active cholecalcifero l, vitamin D3, 25 mcg (1,000 Unit) tablet Take 25 mcg by mouth daily. Active tadalafiL (Cialis) 5 mg tablet Take 1 tablet (5 mg total) by mouth daily. Can take up to 20 mg 1 hour prior prior to anticipated sexual activity. Do not exceed 20 mg in 24 hours. 90 tablet 3 05/01/20 23 Active Additional Information Patient taking differently:5 mg oralAs needed, Can take up to 20 mg 1 hour prior prior to anticipated sexual activity. Do not exceed 20 mg in 24 hours., Reported on 03/04/2025 sodium chloride-sodiu m bicarbonate (NEILMED SINUS RINSE) nasal rinse Administer 1 Application into each nostril as needed for congestion. Use water that is either sterile, distilled, or previously boiled for preparations; do not use tap water. 11/24/19 24 Active Additional Information Patient taking differently:1 Application each nostrilDaily, Use water that is either sterile, distilled, or previously boiled for preparations; do not use tap water., Reported on 03/04/2025 budesonide 0.6 mg capsule / nasal rinse Empty the contents of 1 capsule in 8 oz of saline using a clean sinus rinse bottle. Irrigate each nostril two times daily.Do not swallow capsules 180 capsule 3 01/14/20 24 Active mupirocin (Bactroban) 2 % ointment ADD 1 INCH RIBBON TO NASAL RINSE BOTTLE TWICE DAILY 22 g 3 07/09/20 24 Active Additional Information Patient taking differently: Add 1 inch ribbon to nasal rinse bottle once daily, Reported on 03/04/2025 ascorbic acid, vitamin C, (Vitamin C) 1,000 mg tablet Take 1,000 mg by mouth daily. Active meclizine (Antivert) 25 mg tablet Take 1 tablet (25 mg total) by mouth 3 (three) times a day as needed for dizziness. 30 tablet 11/02/19 25 Active spironolactone (Aldactone) 25 mg tablet TAKE 1 TABLET DAILY 90 tablet 3 11/16/19 25 Active gabapentin (Neurontin) 300 mg capsule Take 300-600 mg by mouth. 09/23/19 25 Active mupirocin (Bactroban) 2 % ointment Apply 1 Application topically 2 (two) times a day for [address] 1 inch ribbon in 8oz of warm saline in rinse bottle. 30 g 2 02/22/20 25 025 Active vitamin E 180 mg (400 Unit) capsule Take 180 mg by mouth every other day. Active sacubitriL-yadira sartan (Entresto) 24-26 mg per tabletIndicati ons:Cardiomyop athy Dilated (HCC),Bradycar river,Beat Premature Ventricular Take 1 tablet by mouth 2 (two) times a day. 180 tablet 3 03/09/20 25 026 Active empagliflozin (Jardiance) 10 mg tabletIndicati ons:Cardiomyop athy Dilated (HCC),Bradycar river,Beat Premature Ventricular Take 1 tablet (10 mg total) by mouth daily before morning meal. 90 tablet 3 03/09/20 25 026 Active finasteride (Proscar) 5 mg tablet Take 1 tablet (5 mg total) by mouth daily. 90 tablet 3 03/10/20 25 Active tamsulosin (Flomax) 0.4 mg 24 hr capsule Take 1 capsule (0.4 mg total) by mouth daily. 90 capsule 3 03/10/20 25 Active finasteride (Proscar) 5 mg tablet Take 1 tablet (5 mg total) by mouth daily. 90 tablet 3 09/01/19 25 025 Discontinued(R eorder) tamsulosin (Flomax) 0.4 mg 24 hr capsule Take 1 capsule (0.4 mg total) by mouth daily. 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 Appropriate increase in heart rate with exercise and normal BP response to exercise. Abnormal Stress Test 02/21/2017 Polyp Colon 03/05/2016 Overview (08/30/2020): Overview: Overview: Colonoscopy 07/2009 polyps repeat in 3 years Colonoscopy 06/2014 polyp repeat in 5 years Overview: Colonoscopy 07/2009 polyps repeat in 3 years Colonoscopy 06/2014 polyp repeat in 5 years Gastroesophageal Reflux Disease Without Esophagi tis 01/12/2013 Polyp Nasal 06/18/2012 Incomplete Bladder Emptying 07/28/2009 Allergy Penicillin Antibiotic Personal History 1 09/28/2008 Frequency Urinary 03/31/2009 Primary Malignant Neoplasm Of Prostate 9 Vertigo Benign Positional Bilateral Resolved Problems Problem Noted Date Diagnosed Date Resolved Date Prolonged QT Interval 12/17/20232023 Hematuria Gross 10/20/2017 06/06/2023 Angioneurotic (Angioedema Ac quired) Edema Initial 01/12/2013 06/06/2023 Elevated Prostate-Specific Antigen 01/09/2009 06/06/2023 Encounters Date Type Department Care Team Description 03/15/2025 Clinical Communication Department of Cardiovascular Medicine in [address] [phone] Erwin Payne M.D. 03/10/2025 Refill Department of Urology in [place], [place] [address] [place] [phone] Natalie Holland APRN, C.N.P., M.S.N. Med Refill 03/10/2025 Orders Only Department of Urology in [place], [place] [address] [place] [phone] Natalie Holland APRN, C.N.P., M.S.N. Primary Malignant Neoplasm Of Prostate (HCC) (Primary Dx) 03/09/2025 10:15 AM CDT Telemedicine Department of Cardiovascular Medicine in [place], [place] [address] [place] [phone] Erwin Payne M.D. Cardiomyopathy Dilated (HCC) (Primary Dx); Bradycardia; Beat Premature Ventricular 03/08/2025 10:11 AM CDT - 03/08/2025 11:59 PM CDT Hospital Encounter Department of Cardiovascular Diseases in [place], [place] [address] [place] [phone] Erwin Payne M.D. Cardiomyopathy Dilated (HCC) Discharge Disposition: Home or Self Care 03/08/2025 9:50 AM CDT - 03/08/2025 10:10 AM CDT Hospital Encounter Department of Cardiovascular Diseases in [place], [place] [address] [place] [phone] Erwin Payne M.D. Cardiomyopathy Dilated (HCC) Discharge Disposition: Home or Self Care 03/08/2025 7:58 AM CDT - 03/08/2025 9:49 AM CDT Hospital Encounter Department of Laboratory Medicine and Pathology, [facility], in [place], [place] [address] [place] [phone] Erwin Payne M.D. Cardiomyopathy Dilated (HCC) Discharge Disposition: Home or Self Care 03/04/2025 11:00 AM CDT Clinical Communication Virtual Review in [place], [place] [address] [place] [phone] Pre-visit Intake 02/21/2025 Orders Only Department of Otorhinolaryngology in [place], [place] [address] [place] [address] Shayna Harrison R.N. 01/11/2025 Orders Only [facility] 01/11/2025 Orders Only Department of Pulmonary Medicine in [place], [place] [address] [place] [phone] Andreina Hamm M.D. 12/28/2024 9:20 PM CDT Ancillary Procedure Department of Otorhinolaryngology 12/28/2024 2:15 PM CDT Office Visit Department of Otorhinolaryngology in [place], [place] [address] [place] [address] Kena Pruitt M.D. Sinusitis Chronic (Primary Dx) 12/23/2024 Clinical Communication Department of Cardiovascular Medicine in [place], [place] [address] [place] [address] Erwin Payne M.D. from Last 3 Months Immunizations Immunization Administration Dates Next Due H1N1 All Forms 07/31/2009 H1N1 Inj 07/31/2009 HZV (ZOSTAVAX) 07/17/2009 Influenza TIV (IM) 05/21/2012, 1,05/19/1998,1995,05/27/1995 Influenza high dose QV(65 ye ars or older) (PF) 05/07/2021,04/27/2020,05/11/2019,2017,05/13/2017,05/24/2016,05/22/2015 Influenza, Quadrivalent, Adj uvanted, Preservative Free 04/28/2023,05/30/2022,05/07/2021,2018,05/12/2018,05/13/2017,05/24/2016,1 Influenza, Seasonal, Injectable 05/21/2012 Influenza, Unspecified 05/24/2013,2011,05/24/2011,1997,05/18/1996,05/27/1995 PCV13 05/20/2017 PPSV23 07/01/2011,10/09/2000 RZV (SHINGRIX) 01/12/2020,06/10/2019 SARS-COV-2 (COVID-19) - MODE RNA (12 YEARS AND OLDER) Fall Seasonal 12/17/2023(Deferred: Patient decision),06/10/2023 SARS-COV-2 (COVID-19) - PFIZ ER (Discontinued)(12 years or older) 09/30/2020 SARS-COV-2 (COVID-19) - PFIZ ER BIVALENT TS(Discontinued)(12 YEARS OR OLDER) 05/02/2022 Td (Adult), adsorbed 02/14/2003 Tdap 12/17/2023(Deferred: Patient concepción browning) influenza trivalent high dos e (HD)(PF) 05/04/2020,05/11/2019,05/12/2018,2016,05/24/2016,05/22/2015,05/23/2012 Family History Medical History Relation Name Comments Heart attack Brother Az Arthritis Father Amanuel kumar Colon cancer Other Uncle Breast cancer Sister 1 cooper Cedeno Dementia Sister 2 Elisha Amblyopia Neg Hx Anesthesia problems Neg Hx Blindness Neg Hx Glaucoma Neg Hx Macular degeneration Neg Hx Relation Name Status Comments Brothkeagan Bernardo Alive Father Amanuel kumar Other Uncle Sister 1 cooper Cedeno Sister 2 Elisha Alive Social History Tobacco Use Types Packs/Day Years Used Date Smoking Tobacco: Former Cigarettes 1.5 28.1 0 11/09/1965 - 12/08/1991 Passive Smoke Exposure: Past Smokeless Tobacco: Former Chew Quit: 12/08/1991 Tobacco Cessation:Counseling Given: Not Answered Alcohol Use Standard Drinks/Week Comments Yes 6 (1 standard drink = 0.6 oz pure alcohol) I enjoy a drink once and a while [facility] Utilities Answer Date Recorded In the past 12 months has e [employer], gas, oil, or water [employer] threatened to shut off services in your [...] your living situation today? I have a [facility] place to live 05/10/2024 Education Answer Date Recorded What is the highest level of school you have completed or the highest degree you have received? Some college, no degree 01/17/2019 Sex and Gender Information Value Date Recorded Sex Assigned at Male 08/22/2021 7:51 AM CARE AIDE Legal Sex Male 10:26 AM CARE AIDE Gender Identity Male 01/17/2019 7:07 PM CDT Sexual Orientation Straight 01/17/2019 7: 07 PM CDT Last Filed Vital Signs Vital Sign Reading Time Taken Comments Blood Pressure 106/73 09/06/2024 2:19 PM CARE AIDE Pulse 51 09/06/2024 2:19 PM CARE AIDE Temperature 36.4 C (97.5 F) 09/06/2024 2:19 PM CARE AIDE Respiratory Rate 16 01/15/2024 10:1 0 AM CDT Oxygen Saturation 96% 01/15/2024 10: 10 AM CDT Inhaled Oxygen Concentration - - Weight 94.2 kg (207 lb 10.8 oz) 09/06/2024 2:19 PM CARE AIDE Height 173 cm (5' 8.11) 08/23/2024 2:46 PM CARE AIDE Body Mass Index 31.47 08/23/2024 2:46 PM CARE AIDE Plan of Treatment Upcoming Encounters Date Type Department Care Team (Latest Contact Info) Description 05/19/2025 10:10 AM CDT Appointment Department of Laboratory Medicine in [address] [phone] Natalie Holland APRN, C.N.P., M.S.N. [address] [place] [phone] 05/19/2025 11:00 AM CDT Appointment Department of Radiology in [address] [phone] Natalie Holland APRN, C.NRajiv., M.S.N. [address] [place] [phone] Discharge Disposition: Home or Self Care 05/20/2025 8:45 AM CDT Clinical Communication Virtual Review in [address] [phone] 06/02/2025 9:00 AM CDT Virtual Visit Department of Urology in [address] [phone] Natalie Holland APRN, C.N.P., M.S.N. [address] [place] [phone] Health Maintenance Due Date Last Done Comments DTaP,Tdap,and Td Vaccines (1 - Tdap) 02/15/2003 02/14/2003 Depression Screening (Annual PHQ-2) 08/11/2024 COVID-19 Vaccine (2023- season) 2024 06/15/2024, 06/10/2023, 05/02/2022, Additional history exists Visit: Medicare Annual Wellness 12/17/2024 12/17/2023 Influenza Vaccine (#1) 2025 , 04/28/2023, 05/30/2022, Additional history exists Fasting Glucose for Diabetes Screening 08/23/2025 08/23/2024, 01/29/2024, 01/15/2024, Additional history exists Visit: Annual, age 65+ (or Medicare and <65) 09/06/2025 09/06/2024 Creatinine Level (Kidney Function Test) 03/08/2026 03/08/2025, 08/23/2024, 01/29/2024, Additional history exists Potassium Level 03/08/2026 03/08/2025, 08/11, 01/29/2024, Additional history exists Sodium Level 03/08/2026 03/08/2025, 08/11, 01/29/2024, Additional history exists Abdominal Aortic Aneurysm (AAA) Screen Discontinued 07/01/2014 Hepatitis C Screening Addressed 12/19/2016 (Performed elsewhere) Overridden with the intention of not completing the topic Pneumococcal vaccine (50+ years) Completed 05/20/2017, 07/01/2011, 10/09/2000 Zoster Vaccines Completed 01/12/2020, 05/13, 07/17/2009 Colonoscopy Discontinued 09/19/2020, 06/14/2014 Colonoscopy Discontinued 09/19/2020, 06/14/2014 Colorectal Cancer Screening Discontinued Colorectal Cancer Surveillance Discontinued RSV vaccine - (32-36 weeks) or 60+ years Completed 06/15/2024 Fall Risk Screen (Annual) Completed 03/08/[address] Colonography Discontinued Cologuard Discontinued FIT Discontinued IPV Vaccines Aged Out No longer eligi ble based on patient's age to complete this topic Medical Devices Implanted Type Area Card Scraper Device Identifier Shelf Expiration Date Model / Serial / Lot Anch [facility] 4.75 - [id number] Implanted:Qt y: 1 on 06/24/2023 by Bryn Pemberton M.D. at [facility] Hardware e.g. pins/screws /rods Right: Shoulder [employer] 01/30/2026 [id number] / / [id number] Anch [facility] Db 4.75 - [id number] Implanted:Qt y: 1 on 06/24/2023 by Bryn Pemberton M.D. at [facility] Hardware e.g. pins/screws /rods Right: Shoulder [employer] 02/07/2026 [id number] / / [id number] Anch [facility] Sfdr 5.5 - [id number] Implanted:Qt y: 1 on 06/24/2023 by Bryn Pemberton M.D. at [facility] Hardware e.g. pins/screws /rods Right: Shoulder [employer] 01/08/2026 [id number] / / [id number] Anch [facility] Sfdr 5.5 - [id number] Implanted:Qt y: 1 on 06/24/2023 by Bryn Pemberton M.D. at [facility] Hardware e.g. pins/screws /rods Right: Shoulder [employer] 12/25/2025 [id number] / / [id number] Procedures Procedure Name Priority Date/Time Associated Diagnosis Comments HOLTER MONITOR - IN CLINIC WAREHOUSE OPERATIONS ASSOCIATE Routine 03/09/2025 10:26 PM CDT Cardiomyopathy Dilated (HCC) (TTE) 2D LIMITED WITH COLOR , DOPPLER AND CONTRAST Routine 03/08/2025 12:06 PM CDT Cardiomyopathy Dilated (HCC) ECG Routine 03/08/2025 9:43 AM CDT Cardiomyopathy Dilated (HCC) NT-PRO B-TYPE NATRIURETIC PEPTIDE (BNP), S Routine 03/08/2025 8:10 AM CDT Cardiomyopathy Dilated (HCC) POTASSIUM, S/P Routine 03/08/2025 8:10 AM CDT Cardiomyopathy Dilated (HCC) BICARBONATE, B/S/P Routine 03/08/2025 8: 10 AM CDT Cardiomyopathy Dilated (HCC) BUN (BLOOD UREA NITROGEN), S/P Routine 03/08/2025 8:10 AM CDT Cardiomyopathy Dilated (HCC) CREATININE WITH EGFR, S/P Routine 2024 8:10 AM CDT Cardiomyopathy Dilated (HCC) SODIUM, S/P Routine 03/08/2025 8:10 AM CDT Cardiomyopathy Dilated (HCC) OTORHINOLARYNGOLOGY IMAGE EXAM Routine 12/28/2024 2:33 PM CDT GLUCOSE, FASTING, S/P Routine 08/23/2024 8:33 AM CARE AIDE Cardiomyopathy Dilated (HCC) Beat Premature Ventricular Bradycardia CT ABDOMEN PELVIS WITH IV CONTRAST Routine 07/01/2014 1:05 PM CARE AIDE from Last 3 Months or Most Recently Relevant to Health Maintenance Results * HOLTER MONITOR - IN CLINIC WAREHOUSE OPERATIONS ASSOCIATE (03/09/2025 10:26 PM CDT) Min Heart Rate 43 bpm INFOB IONIC MOME Max Heart Rate 81 bpm INFOB IONIC MOME Mean Heart Rate 62 bpm INFOBIONIC MOME VE Total Beats 91222 count INFOB IONIC MOME VE Percent Beats 28 percent INFOBIONIC MOME SVE Total Beats 383 count INFOBIONIC MOME SVE Percent Beats less than 1 percent INFOBIONIC MOME Holter Pauses 62 count INFOBI ONIC MOME Pause Longest 2.1s duration INFOBI ONIC MOME AF Count 0 count INFOBIONIC MOME AF Duration 0 duration INFOBION IC MOME AF Capulin 0 percent INFOBIONIC MOME Symptom Count 1 [...] rates ranging from 123 to 153 bpm. Ict Support Engineer: ASHLEY Albarran Procedure Note Levon Marte Jr., [...] rates ranging from 123 to 153 bpm. Ict Support Engineer: ASHLEY Albarran us Erwin Payne M.D. CV CARDIAC [facility] Edited Result - Final BERNABE QUIROZ NA * (TTE) 2D LIMITED WITH COLOR , [...] per Echocardiography Contrast Administration Protocol Reference Document [id number] Rev 12/24/2024. Patient met an inclusion criterion and did not have contraindications in screening sections. CO-SIGNATURE:The electronic signature of the responsible supervising echo physician in this report also provides authentication within the electronic health record for the medication(s) initiated in [facility] and listed within this report. These [...] performed. Comments Findings discussed with Dr. Payne. -JBG Findings Echocardiogram performed per left ventricular function protocol. Attemptswere made to optimize the echocardiographic images and two or more leftventricular segments were not visualized adequately to evaluate cardiacstructure. The patient's current allergies and medications have beenscreened. Intravenous Definity ultrasound enhancement agent(s)administered to enhance endocardial border definition. Imaging enhancementagent administered per Echocardiography Contrast Administration ProtocolReference Document [id number] Rev 12/24/2024. Patient met an inclusioncriterion and did not have contraindications in screening sections. CO-SIGNATURE:The electronic signature of the responsible supervising echophysician in this report also provides authentication [facility] for the medication(s) initiated in Epic andlisted within this report. These medications were [...] the complete report, see the Order-Level Documents. us Erwin Payne M.D. CV ECHO PROCEDURES Final Result * ECG 12 Lead (03/08/2025 9:43 AM CDT) Ventricular Rate ECG/Min 47 BPM MUSE MD Interval 194 ms MUSE QRSD Interval 100 ms MUSE QT Interval 446 ms MUSE QTC Interval 394 ms MUSE P [place] 48 degrees MUSE R [place] -30 degrees MUSE T Wave [place] 49 degrees MUSE 03/08/2025 9:43 AM CDT 03/08/2025 9:55 AM CDT Impressions MUSE - 03/08/2025 9:55 AM CDT Marked sinus bradycardia Premature ventricular complexes Left axis deviation Nonspecific T wave abnormality When compared with ECG of 23-Aug-2024 09:29, Premature ventricular complexes are now present Reviewed by ASHLEY Mejia Narrative Procedure Note Remy Jordan M.D., Ph.D. - 03/08/2025 IMPRESSION: Marked sinus bradycardia Premature ventricular complexes Left axis deviation Nonspecific T wave abnormality When compared with ECG of 23-Aug-2024 09:29, Premature ventricular complexes are now present Reviewed by ASHLEY Mejia Erwin Payne M.D. ECG ORDERABLES Edited Re sult - Final Performing Organization Address [facility]UST de Phone Number MUSE NA * NT-Pro B-Type Natriuretic Peptide (BNP) (03/08/2025 8:10 AM CDT) NT-Pro BNP 195 <=540 pg/mL 03/08/2025 10:28 [...] ADD-ON Final Re sult Performing Organization Address [facility]/ZIP Co de Phone Number [facility] [address] [place] [address], [facility] [address] [place] [address] * BUN (Blood Urea Nitrogen) (03/08/2025 8:10 AM CDT) BUN (Blood Urea Nitrogen), S 18 8 - 24 mg/dL 03/08/2025 10:28 AM CDT DTL Blood (Blood, Venous) 03/08/2025 8:10 AM CDT 03/08/2025 8:35 AM CDT Erwin Payne M.D. LAB BLOOD ADD-ON Final Re sult [facility] [address] [place] [address], [facility] [address] [place] [address] * Sodium (03/08/2025 8:10 AM CDT) Sodium, S 140 135 - 145 mmol/L 03/08/2025 10:28 AM CDT DTL Blood (Blood, Venous) 03/08/2025 8:10 AM CDT 03/08/2025 8:35 AM CDT us Erwin Payne M.D. LAB BLOOD ADD-ON Final Re sult [facility] [address] [place] [address], [facility] [address] [place] [address] * Potassium (03/08/2025 8:10 AM CDT) Potassium, S 4.5 3.6 - 5.2 mmol/L 03/08/2025 10:28 AM CDT DTL Blood (Blood, Venous) 03/08/2025 8:10 AM CDT 03/08/2025 8:35 AM CDT Erwin Payne M.D. LAB BLOOD ADD-ON Final Re sult [facility] [address] [place] [address], [facility] [address] [place] [address] * Creatinine with Estimated GFR (03/08/2025 8:10 AM CDT) Creatinine 1.14 0.74 - 1.35 mg/dL 03/08/2025 10:28 AM CDT DTL Estimated GFR (eGFR) 65 >=60 mL/min/BSA 03/08/2025 10:28 AM CDT DTL Comment: Estimated GFR calculated using the 2020 CKD_EPI creatinine equation. Blood (Blood, Venous) 03/08/2025 8:10 AM CDT 03/08/2025 8:35 AM CDT Erwin Payne M.D. LAB BLOOD ADD-ON Final Re sult [facility] [address] [place] [address], [facility] [address] [place] [address] * Bicarbonate (03/08/2025 8:10 AM CDT) Bicarbonate, S 24 22 - 29 mmol/L 03/08/2025 10:28 AM CDT DTL Blood (Blood, Venous) 03/08/2025 8:10 AM CDT 03/08/2025 8:35 AM CDT Erwin Payne M.D. LAB BLOOD ADD-ON Final Re sult [facility] [address] [place] [address], [facility]note 3[facility] [address] [place] [address] * Nasal Endoscopy-Otorhinolaryngology Image Exam (12/28/2024 2:33 PM CDT) Narrative IIMS - 12/28/2024 2:33 PM CDT This order has been created and auto-finalized to support the import of images acquired without order. The clinical documentation to support these images can be found on the encounter that produced images. us Provider Not In System IMG NON RAD IMAGING PROCE DURES Final Result Performing Organization Address City/[facility]/ZIP Co de Phone Number IINJ NA * Glucose, Fasting (08/23/2024 8:33 AM CARE AIDE) Glucose, P 92 70 - 100 mg/dL 08/23/2024 9:49 AM CARE AIDE DTL Last Intake 1 hr 08/23/2024 9:16 AM CARE AIDE DTL Blood (Blood, Venous) 08/23/2024 8:33 AM CARE AIDE 08/23/2024 9:16 AM CARE AIDE Erwin Payne M.D. LAB BLOOD NON ADD-ON Lisa l Result Performing Organization Address [facility] Co de Phone Number [facility] [address] [place] [address], [facility] DTL [facility] [address] [place] [address] * CT Abdomen Pelvis with IV Contrast (07/01/2014 1:05 PM CARE AIDE) Anatomical Region Laterality Modality Abdomen, Pelvis N/A Computed Tomogra phy 07/01/2014 1:05 PM CARE AIDE Impressions 07/01/2014 1:23 PM CARE AIDE 1. Lateral right 8th and 9th subacute rib fractures. 2. No intra-abdominal findings to correlate with history of right upper quadrant pain. FINDINGS: Nondisplaced subacute fractures in the lateral 9th and 8th right ribs. Liver demonstrates several low attenuation foci, the largest measuring 2.7cm with fluid density likely representing cyst. Additional foci are too small for definitive characterization. Gallbladder, pancreas, spleen and bilateral adrenal glands appear unremarkable. 2mm stone in the lower pole right kidney. Small bilateral renal cysts. Stomach, small bowel and colon are unopacified and non-dilated. Normal appearance of the appendix. Scattered diverticula associated with distal colon. No secondary signs to suggest diverticulitis. Mild prostate enlargement measuring 6.2 x 4.8cm in transverse dimension. Bilateral fat-filled inguinal hernias. Hypertrophic degenerative changes of the spine. Thank you for this consultation. Electronically signed by: Taco Wilhelm MD [id number] 01-Jul-2014 13:23 Narrative 07/01/2014 1:23 PM CARE AIDE 01-Jul-2014 13:05:00 Exam: CT ABDOMEN w & PELVIS w Indications: RUQ pain after trauma 3 weeks ago. ORIGINAL REPORT - 01-Jul-2014 13:23:00 CT scan of the Abdomen and Pelvis with IV contrast: COMPARISON: None. Procedure Note Kodi Wilhelm M.D. - 11/07/2017 01-Jul-2014 13:05:00 Exam: CT ABDOMEN w & PELVIS w Indications: RUQ pain after trauma 3 weeks ago. ORIGINAL REPORT - 01-Jul-2014 13:23:00 CT scan of the Abdomen and Pelvis with IV contrast: COMPARISON: None. IMPRESSION: 1. Lateral right 8th and 9th subacute rib fractures. 2. No intra-abdominal findings to correlate with history of right upperquadrant pain. FINDINGS: Nondisplaced subacute fractures in the lateral 9th and 8th rightribs. Liver demonstrates several low attenuation foci, the largestmeasuring 2.7cm with fluid density likely representing cyst. Additionalfoci are too small for definitive characterization. Gallbladder, pancreas,spleen and bilateral adrenal glands appear unremarkable. 2mm stone in thelower pole right kidney. Small bilateral renal cysts. Stomach, small boweland colon are unopacified and non-dilated. Normal appearance of theappendix. Scattered diverticula associated with distal colon. No secondarysigns to suggest diverticulitis. Mild prostate enlargement measuring 6.2 x4.8cm in transverse dimension. Bilateral fat-filled inguinal hernias.Hypertrophic degenerative changes of the spine. Thank you for this consultation. Electronically signed by: Taco Wilhelm MD [id number] 01-Jul-2014 13:23 Remy Flores [address] IM CT PROCEDURES Final Re sult from Last 3 Months or Most Recently Relevant to Health Maintenance Insurance MEDICARE [facility] Advance Directives For more information, please contact: [phone] Documents on File Type Date Recorded Patient Supervisor Pipe Joints Expl anation Advance Directives 01/06/2024 9:43 AM Kiara Leyva HCPOA/ADVOCATE/AGENT /OUTDOOR FITNESS TRAINER/SURR OGATE Healthcare Agents on File Name Relationship Healthcare Agent Relationship Communication Kiara Godinez Spouse Health Care Agent [email or web address] Parveen Godinez Son First Altern ate Health Care Agent Sabina Stewart Daughter First Alternate Health Care Agent Lady Jack Daughter First Alternate Health Care Agent Care Teams Floor Coverings Installer Relationship Specialty Start Date End Date Tiffanie Weston M.D. [id number] [phone] PCP - General Family Medicine 09/06/24
--- OUTSIDE RECORDS SUMMARY | 2025-03-17 08:22 | XMS_ITS | Encounter Summary ---
Author Organization [facility] Address [address] [place] [address] Care Team Providers Care Forepart Rounder Name Role Phone Tiffanie Weston M.D. Primary Care Provider [phone] Reason for Referral * Outpatient (Routine) - Authorized Specialty Diagnoses / Procedures Referred By Mj garcia Referred To Contact Urology Natalie Holland APRN, C.NCameliaPCamelia, M.S.N. [address] [place] [address] Phone: tel: fax: [facility] Referral ID Status Reason Start Date Expiration Date V isits Requested Visits Authorized [id number] Authorized 03/10/2025 09/09/2026 1 1 Encounter Details Date Type Department Care Team (Late st Contact Info) Description 03/10/2025 Orders Only Department of Urology in [place], [place] [address] [place] [address] Natalie Holland APRN, C.N.P., M.S.N. 200 [place] [address] Primary Malignant Neoplasm Of Prostate (HCC) (Primary Dx) Social History Tobacco Use Types Packs/Day Years Used Date Smoking Tobacco: Former Cigarettes 1.5 28.1 0 11/09/1965 - 12/08/1991 Passive Smoke Exposure: Past Smokeless Tobacco: Former Chew Quit: 12/08/1991 Alcohol Use Standard Drinks/Week Comments Yes 6 (1 standard drink = 0.6 oz pure alcohol) I enjoy a drink once and a while [facility] [employer] Answer Date Recorded In the past 12 months has [facility] [place], gas, oil, or water [employer] threatened to shut off services in your [...] your living situation today? I have a [facility] place to live 05/10/2024 Education Answer Date Recorded What is the highest level of school you have completed or the highest degree you have received? Some college, no degree 01/17/2019 Sex and Gender Information Value Date Recorded Sex Assigned at Male 08/22/2021 7:51 AM GAS APPLIANCE REPAIRER Legal Sex Male 10:26 AM GAS APPLIANCE REPAIRER Gender Identity Male 01/17/2019 7:07 PM CDT Sexual Orientation Straight 01/17/2019 7: 07 PM CDT documented as of this encounter Plan of Treatment Upcoming Encounters Date Type Department Care Team (Latest Contact Info) Description 05/19/2025 10:10 AM CDT Appointment Department of Laboratory Medicine in [address] [phone] Natalie Holland APRN, C.N.P., M.S.N. [address] [place] [phone] 05/19/2025 11:00 AM CDT Appointment Department of Radiology in [address] [phone] Natalie Holland APRN, Cici.N.P., M.S.N. [address] [place] [phone] Discharge Disposition: Home or Self Care 05/20/2025 8:45 AM CDT Clinical Communication Virtual Review in [place], [place] [address] [place] [address] 06/02/2025 9:00 AM CDT Virtual Visit Department of Urology in [place], [place] [address] [place] [phone] Natalie Holland APRN, C.N.P., M.S.N. [address] [place] [phone] Scheduled Orders Name Type Priority Associated Diagnoses Orde r Schedule PSA (Prostate-Specific Antigen), Diagnostic Lab Routine Primary Malignant Neoplasm Of Prostate (HCC) Expected: 03/10/2025, Expires: 06/10/2026 Scheduled Referrals Name Type Priority Associated Diagnoses Orde r Schedule Urology office visit (clinic) Outpatient Referral Routine Expected: 03/10/2025, Expires: 06/10/2026 documented as of this encounter Visit Diagnoses Diagnosis Primary Malignant Neoplasm Of Prostate (HCC)- Primary documented in this encounter Care Teams Forepart Rounder Relationship Specialty Start Date End Date Tiffanie Weston M.D. NPTasneem: [phone] [address] [place] [phone] PCP - General Family Medicine 09/06/24 documented as of this encounter
--- OUTSIDE RECORDS SUMMARY | 2025-03-17 08:22 | XMS_ITS | Encounter Summary ---
Author Organization [facility] Address [address] [place] [address] Care Team Providers Care Electrode Turner And Finisher Name Role Phone Tiffanie Weston M.D. Primary Care Provider Encounter Details Date Type Department Care Team (Latest Contact Info) Description 03/15/2025 Clinical Communication Department of Cardiovascular Medicine in [place], [place] [address] [place] [phone] Erwin Payne M.D. [address] [place] [address] Social History Tobacco Use Types Packs/Day Years Used Date Smoking Tobacco: Former Cigarettes 1.5 28.1 0 11/09/1965 - 12/08/1991 Passive Smoke Exposure: Past Smokeless Tobacco: Former Chew Quit: 12/08/1991 Alcohol Use Standard Drinks/Week Comments Yes 6 (1 standard drink = 0.6 oz pure alcohol) I enjoy a drink once and a while [facility] Utilities Answer Date Recorded In the past 12 months has th e electric, gas, oil, or water company threatened to [...] living situation today? I have a [facility] place to live 05/10/2024 Education Answer Date Recorded What is the highest level of school you have completed or the highest degree you have received? Some college, no degree 01/17/2019 Sex and Gender Information Value Date Recorded Sex Assigned at Male 08/22/2021 7:51 AM ANTISQUEAK APPLIER Legal Sex Male 10:26 AM ANTISQUEAK APPLIER Gender Identity Male 01/17/2019 7:07 PM CDT Sexual Orientation Straight 01/17/2019 7: 07 PM CDT documented as of this encounter Plan of Treatment Upcoming Encounters Date Type Department Care Team (Latest Contact Info) Description 05/19/2025 10:10 AM CDT Appointment Department of Laboratory Medicine in [address] [phone] Natalie Holland APRN, C.NRajiv., M.S.N. [address] [place] [phone] 05/19/2025 11:00 AM CDT Appointment Department of Radiology in [address] [phone] Natalie Holland APRN, C.N.P., M.S.N. [address] [place] [phone] Discharge Disposition: Home or Self Care 05/20/2025 8:45 AM CDT Clinical Communication Virtual Review in [place], [place] 200 [place] [address] 06/02/2025 9:00 AM CDT Virtual Visit Department of Urology in [place], [place] [address] [place] [phone] Natalie Holland APRN, C.NRajiv., M.S.N. [address] [place] [phone] documented as of this encounter Visit Diagnoses Not on filedocumented in this encounter Care Teams Electrode Turner And Finisher Relationship Specialty Start Date End Date Tiffanie Weston M.D. [address] [place] [phone] PCP - General Family Medicine 09/06/24 documented as of this encounter
--- OUTSIDE RECORDS SUMMARY | 2025-03-17 08:22 | XMS_ITS | Encounter Summary ---
Author Organization [facility] Address [address] [place] [address] Care Team Providers Care Marbleizing Machine Tender Name Role Phone Tiffanie Weston M.D. Primary Care Provider [phone] Encounter Details Date Type Department Care Team (Late st Contact Info) Description 02/21/2025 Orders Only Department of Otorhinolaryngology in [place], [place] [address] [place] [address] Shayna Harrison R.N. [address] [place] [address] Social History Tobacco Use Types Packs/Day Years Used Date Smoking Tobacco: Former Cigarettes 1.5 28.1 0 11/09/1965 - 12/08/1991 Passive Smoke Exposure: Past Smokeless Tobacco: Former Chew Quit: 12/08/1991 Alcohol Use Standard Drinks/Week Comments Yes 6 (1 standard drink = 0.6 oz pur e alcohol) every other day has 1 drink [facility] Utilities Answer Date Recorded In the past 12 months has e [employer], gas, oil, or water [employer] threatened to shut off services in your [...] your living situation today? I have a [facility] place to live 05/10/2024 Education Answer Date Recorded What is the highest level of school you have completed or the highest degree you have received? Some college, no degree 01/17/2019 Sex and Gender Information Value Date Recorded Sex Assigned at Male 08/22/2021 7:51 AM CLERK TYPIST Legal Sex Male 10:26 AM CLERK TYPIST Gender Identity Male 01/17/2019 7:07 PM CDT Sexual Orientation Straight 01/17/2019 7: 07 PM CDT documented as of this encounter Plan of Treatment Upcoming Encounters Date Type Department Care Team (Latest Contact Info) Description 05/19/2025 10:10 AM CDT Appointment Department of Laboratory Medicine in [address] [phone] Natalie Holland APRN, C.NRajiv., M.S.N. [address] [place] [phone] 05/19/2025 11:00 AM CDT Appointment Department of Radiology in [address] [phone] Ntaalie Holland APRN, C.N.P., M.S.N. [address] [place] [phone] Discharge Disposition: Home or Self Care 05/20/2025 8:45 AM CDT Clinical Communication Virtual Review in [place], [place] 200 [place] [address] 06/02/2025 9:00 AM CDT Virtual Visit Department of Urology in [place], [place] [address] [place] [phone] Natalie Holland APRN, C.NCameliaP., M.S.N. [address] [place] [phone] documented as of this encounter Visit Diagnoses Not on filedocumented in this encounter Care Teams Marbleizing Machine Tender Relationship Specialty Start Date End Date Tiffanie Weston M.D. [address] [place] [phone] PCP - General Family Medicine 09/06/24 documented as of this encounter
--- OUTSIDE RECORDS SUMMARY | 2025-03-17 08:23 | XMS_ITS | Clinical Summary ---
Author Organization [email or web address] Address [address] [place] [address] Care Team Providers Care Sheet Metal Pattern Cutter Name Role Phone RicciHoa wilhelm MD Primary Care Provider Allergies No known active allergies Medications MULTIVITAMIN TAB take 1 tablet by oral route once daily with food 0 8 Active VITAMIN C 500 MG TAB 1 orally once daily 0 8 Active finasteride (PROSCAR) 5 mg tablet Take 1 tablet by mouth every morning. 0 4 Active cetirizine (ZYRTEC) 10 mg tablet PRN 2-4 pills depending on the itchiness. 0 4 Active cholecalciferol (VITAMIN D3) 1,000 unit tablet Take 25 mcg by mouth. Active meclizine (ANTIVERT) 25 mg tablet Take 25 mg by mouth 3 times daily if needed. 2 Active tadalafiL (CIALIS) 5 mg tablet Take 5 mg by mouth. 2 Active tamsulosin (FLOMAX) 0.4 mg capsule 3 Active lisinopriL (PRINIVIL; ZESTRIL) 10 mg tabletIndications: Dilated cardiomyopathy (HC) Take 1 Tablet (10 mg) by mouth once daily. 90 Tablet 3 3 Active mometasone (Nasonex) (50 mcg each actuation) nasal sprayIndications:N carlos polyposis Inhale 2 Sprays to both nostrils once daily. 51 g 3 4 Active triamcinolone (ARISTOCORT; KENALOG) 0.1 % creamIndications:D ermatitis Apply topically to affected area(s) two times daily. Use for up to 2 weeks at a time. 80 g 4 Active gabapentin (NEURONTIN) 300 mg capsuleIndications :Lumbar radiculopathy Take 1-2 Capsules (300-600 mg) by mouth at bedtime. 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 Mixed hyperlipidemia 02/21/2017 Sinus bradycardia 02/21/2017 Overview (08/24/2020): Asymptomatic Benign prostatic hyperplasia without urinary obs truction 03/05/2016 Colon polyp 03/05/2016 Overview (09/20/2020): Colonoscopy 07/2009 polyps repeat in 3 years Colonoscopy 06/2014 polyp repeat in 5 years Colonoscopy 09/2020 polyps, repeat in 5 years Nasal cavity polyp 03/05/2016 Malignant neoplasm of prostate 01/19/2009 Overview (08/24/2020): in study at [facility], in observation arm following Q3 months in study at [facility], in observation arm following Q3 months Exposure to hazardous chemical Overview (06/20/2008): petrochemical exposures at work - [facility] [facility] [employer] [facility] (Dr. Rojas) 02/28/03 - annual testing to include: audiogram, pfts, cxr, ekg, ua, cbc, comp metabolic panel Encounters Date Type Department Care Team Description 03/01/2025 1:40 PM CDT Office Visit [facility] [address] [place] [phone] Bartolo Hinds MD Procedure (Right L4-5 and L5-S1 TFESI) 02/18/2025 Telephone [facility] [address] [place] [address] Bartolo Hinds MD Injection (Medication) from Last 3 Months Immunizations Immunization Administration Dates Next Due COVID-19 VACCINE SPIKEVAX (M ODERNA 50MCG/0.5ML) 12YO+ PFS 06/10/2023 COVID-19 vaccine (gis.toBio NTech 30mcg/0.3mL) 12YO+ BIVALENT PF, MDV 05/02/2022 COVID-19 vaccine (Fatwire-Bio NTech 30mcg/0.3mL) PF, MDV 10/21/2020,09/30/2020 Influenza A (H1N1), Inactivated 07/31/2009,07/31 Influenza A (H1N1), Inactiva peg (Age >=3 Years) 07/31/2009 Influenza Virus, Unspecified 05/24/2013, 05/21/2012,05/24/2011,05/24,05/19/1998,05/18/1996,05/27/1995 Influenza, High-dose Inactivated 020,05/11/2019,05/12/2018,05/13,05/24/2016,05/22/2015,05/23/2012 Influenza, High-dose Quadriv alent Inactivated 05/07/2021,04/27/2020 Influenza, IIV3 (Age >=3 years) 05/21/20 12,05/24/2011,05/19/1998,05/18,05/27/1995 Influenza, Inactivated AIIV4 (Age 65+ Years) Preserv Free 04/28/2023,05/30/2022,05/07/2021,05/11,05/12/2018,05/13/2017,05/24/2016 ,05/22/2015 Influenza, Inactivated IIV3 (Age 65+ Years) Preserv Free 06/21/2024 Pneumococcal Poly,23-Valent (Pneumovax) 07/01/2011,10/09/2000 Pneumococcal conj 13-Valent (Prevnar 13) 05/20/2017 RSV, Recombinant ADJ Reconst ituted (Arexvy 120MCG/0.5mL) 06/15/2024 Td (Age >=7 Years) 02/14/2003 Zoster (Shingrix-RZV, recombinant) 01/12/2020, Zoster (Zostavax-ZVL, live) 07/17/2009 Family History Medical History Relation Name Comments Other Father lots of health problems related to service Heart Disease Mother Cancer-breast Sister 10 Relation Name Status Comments Brother 1 Alive Brother 2 Alive Brother 3 Alive Brother 4 Alive Brother 5 Alive Brother 6 Alive Daughter 1 Alive Daughter 2 Alive Father (Age 70s) Mother Alive Sister 1 Sister 2 Alive Sister 3 Alive Sister 4 Alive Sister 5 Alive Sister 6 Alive Sister 7 Alive Sister 8 Alive Sister 9 Alive Sister 10 Son Alive Social History Tobacco Use Types Packs/Day Years Used Date Smoking Tobacco: Former Cigarettes 1 26 0 12/07/1965 - 12/08/1991 Smokeless Tobacco: Never Tobacco Cessation:Counseling Given: Yes Alcohol Use Standard Drinks/Week Comments Yes 0 (1 standard drink = 0.6 oz pur e alcohol) 3-4 drinks per week (varies) PHQ-2 Answer Date Recorded PHQ-2 TOTAL SCORE 1 04/28/2023 Social Connections Answer Date Recorded Frequency of Communication with Friends and Fami ly 4 04/28/2023 Financial Resource Strain Answer Date R ecorded Difficulty of Paying Living Expenses 3 04/28/2023 Difficulty of Paying Living Expenses Not on file 04/28/2023 Food Insecurity Answer Date Recorded Worried About Running Out of Food in the Last Ye ar 1 04/28/2023 Transportation Needs Answer Date Record ed Lack of Transportation (Medical) 1 04/28/2023 Housing Stability Answer Date Recorded Unable to Pay for Housing in the Last Year 1 04/28/2023 Sex and Gender Information Value Date Recorded Sex Assigned at Not on file Legal Sex Male 6:23 AM ATTORNEY AT LAW Gender Identity Not on file Sexual Orientation Not on file Obstetrics History Last Filed Vital Signs Vital Sign Reading Time Taken Comments Blood Pressure 138/78 09/23/2024 11:28 AM ATTORNEY AT LAW manual BP Pulse 49 09/23/2024 11:07 AM ATTORNEY AT LAW Temperature 36.6 C (97.9 F) 09/23/2024 11:07 AM ATTORNEY AT LAW Respiratory Rate - - Oxygen Saturation 97% 09/23/2024 11: 07 AM ATTORNEY AT LAW Inhaled Oxygen Concentration - - Weight 93.1 kg (205 lb 3.2 oz) 09/23/19 11:07 AM ATTORNEY AT LAW shoes on Height 172.7 cm (5' 8) 04/28/2023 1:28 PM CDT Body Mass Index 31.2 04/28/2023 1:28 PM CDT Plan of Treatment Health Maintenance Due Date Last Done Comments Hepatitis C screening for age 18-79 12/04/1963 Tetanus booster 02/14/2013 02/14/2003 BMI (ht and wt on same day) for age 18+ 04/28/2024 04/28/2023, 12/06/2020, 08/24/2020 Depression screening for age 12+ 04/28/2024 04/28/2023, 08/24/2020 Medicare Wellness for age 65+ 04/28/2024 04/28/2023, 08/24/2020, 03/22/2014, Additional history exists COVID-19 vaccine series ( season) 2024 06/15/2024, 06/10/2023, 05/02/2022, Additional history exists Influenza Vaccine (#1) 2025 , 04/28/2023, 05/30/2022, Additional history exists Pneumococcal series for age 50+ Completed 05/20/2017, 07/01/2011, 10/09/2000 Zoster (shingles) series for age 50+ Completed 01/12/2020, 06/10/2019, 07/17/2009 RSV vaccine for adults or Completed 06/15/2024 Hepatitis B series for 19+ Aged Out N o longer eligible based on patient's age to complete this topic Procedures Procedure Name Priority Date/Time Associated Diagnosis Comments AMB EPIDURAL STEROID INJECTION Routine 03/01/2025 12:00 AM CDT Lumbar radiculopathy from Last 3 Months Results * AMB EPIDURAL STEROID INJECTION (03/01/2025 12:00 AM CDT) us Bartolo Hinds MD NEUROLOGY ORD Final Resu lt from Last 3 Months Insurance [employer] BLUE MR PB ONLY Advance Directives Documents on File Type Date Recorded Patient Station Installation Supervisor Expl anation Healthcare Directive 07/08/2017 017 Care Teams Sheet Metal Pattern Cutter Relationship Specialty Start Date End Date Hoa Wynne MD PCP - General 05/22/09
[2025-03-17 08:29] VITALS: BP 120/86; PULSE 51; RESP 20; TEMP 36.2; O2SAT 95; BMI 29.1
--- NOTE | 2025-03-17 09:03 | ED.BACK ---
HPI - Back Pain/Injury General Date Seen: 03/17/25 Chief Complaint: Back Injury/Pain Stated Complaint: back pain Time Seen by Provider: 03/17/25 08:24 Source: patient Mode of arrival: ambulatory Limitations: no limitations History of Present Illness HPI Narrative: Patient is a 79-year-old male presenting to the emergency department for back pain. He has been dealing with low back pain for several years now stemming from a horse riding accident 3 years ago. Has been seeing Dr. Hinds for this. Was found to have L4 and L5 herniated discs. Has been receiving injections over the past few years. States usually they helped quite a bit and just had his 5th injection 2 weeks ago. This injection he states was more painful than previous ones and he has not had any relief of his symptoms. States he was developing worsening pain yesterday and had difficulty sleeping overnight. A day he states he did try to bend over and when he stood back up had severe pain to his right lower back. Pain does radiate into his right gluteal region. Does have intermittent numbness of his lateral aspect of right buttocks. Has baseline bladder incontinence due to his enlarged prostate but not any changes recently that he is aware of. Denies any loss of bowel control. Denies history of IV drug use. Is not taking any medication yet for pain. Does take oxycodone occasionally but he does not like it due to it causing some knee and constipation. States currently he cannot function due to the pain. Any movement he states hurts Related Data Home Medications ?Medication ?Instructions ?Recorded ?Confirmed empagliflozin 10 mg tablet 10 mg PO DAILY 03/17/25 03/17/25 (Jardiance) finasteride 5 mg tablet 5 mg PO DAILY 03/17/25 03/17/25 lisinopril 10 mg tablet 10 mg PO DAILY 03/17/25 03/17/25 sacubitril 24 mg-valsartan 26 mg 1 tab PO BID 03/17/25 03/17/25 tablet (Entresto) spironolactone 25 mg tablet 25 mg PO DAILY 03/17/25 03/17/25 tamsulosin 0.4 mg capsule PO 03/17/25 Allergies Allergy/AdvReac Type Severity Reaction Status Date / Time No Known Drug Allergies Allergy Verified 03/17/25 08:35 Review of Systems Narrative: Pertinent systems reviewed and were negative unless stated in HPI PFSH PFS Social History Smoking Status: Never smoker Do you use any of these nicotine containing products: None Second hand tobacco smoke exposure: No How often do you have a drink containing alcohol: 2-3 times a week AUDIT-C Alcohol total score: 3 Non-prescribed substance use: denies use Exam Narrative: Exam Narrative: Const: Well-nourished, Well-developed, in moderate distress Eyes: PERRL, no conjunctival injection, and symmetrical lids HENT: Atraumatic external nose and ears. Moist mucous membranes. MSK:Extremities w/o deformity, decreased range of motion of his back due to pain. Skin: Warm, Dry. No rashes or lesions. Neuro: Normal Muscle tone, No focal neurological deficits. Psych: Awake, Alert, & Oriented x3. Appropriate mood and affect. Const: Vital Signs, click to edit/add: Vital Signs - 24 hr 03/17/25 08:29 Temperature 97.1 F L Pulse Rate [Right Pulse Oximeter] 51 L Respiratory Rate 20 Blood Pressure [Le ft Forearm] 120/86 Pulse Oximetry 95 Oxygen Delivery Me thod Room Air Course Vital Signs Vital signs: Initial Vital Signs Temperature 97.1 F L 03/17/25 08:29 Temperature Source Temporal Artery Scan 03/17/25 08:29 Pulse Rate 51 L 03/17/25 08:29 Pulse Rhythm Regular 03/17/25 08:29 Pulse Strength 3+ Normal 03/17/25 08:29 Respiratory Rate 20 03/17/25 08:29 Blood Pressure 120/86 03/17/25 08:29 Blood Pressure Mean 97 03/17/25 08:29 Blood Pressure Position Sitting 03/17/25 08:29 Pulse Oximetry 95 03/17/25 08:29 Oxygen Delivery Method Room Air 03/17/25 08:29 Vital Signs Temperature 97.1 F L 03/17/25 08:29 Pulse Rate 51 L 03/17/25 08:29 Respiratory Rate 20 03/17/25 08:29 Blood Pressure 120/86 03/17/25 08:29 Pulse Oximetry 95 03/17/25 08:29 Oxygen Delivery Method Room Air 03/17/25 08:29 Temperature 97.1 F L 03/17/25 08:29 Pulse Rate 51 L 03/17/25 08:29 Respiratory Rate 20 03/17/25 08:29 Blood Pressure 120/86 03/17/25 08:29 Pulse Oximetry 95 03/17/25 08:29 Oxygen Delivery Method Room Air 03/17/25 08:29 Medications Administered Medications: Discontinued Medications Generic Name Dose Route Start Last Admin Trade Name Tigre PRN Reason Stop Dose Admin Cyclobenzaprine HCl 10 mg 03/17/25 08:50 03/17/25 09:09 Cyclobenzaprine Hcl 10 Mg Tablet PO 03/17/25 08:51 10 mg ONCE ONE Administration Ketorolac Tromethamine 30 mg 03/17/25 08:50 03/17/25 09:08 Ketorolac 30 Mg/Ml Inj IM 03/17/25 08:51 30 mg ONCE ONE Administration Lidocaine 1 patch 03/17/25 10:00 03/17/25 10:47 Lidocaine 5% Patch TRANSDERMA 03/17/25 10:01 1 patch ONCE ONE Administration Protocol Morphine Sulfate 4 mg 03/17/25 08:50 03/17/25 09:08 Morphine 4 Mg/Ml Inj IM 03/17/25 08:51 4 mg ONCE ONE Administration Prednisone 40 mg 03/17/25 08:50 03/17/25 09:09 Prednisone 20 Mg Tablet PO 03/17/25 08:51 40 mg ONCE ONE Administration MDM - Back Pain/Injury MDM Narrative Medical decision making narrative: Patient is a 79-year-old male presenting to the emergency department for back pain. Does not have any red flag symptoms for cauda equina. At this time I do not believe x-rays would be beneficial as there is no recent trauma associated with the pain. This similar try given medications to see if they help with his pain. Will provide Flexeril, Toradol, morphine, prednisone. Patient is still having pain after this so I did order a lidocaine patch and did try and stretch out his back tried help with the muscle spasms. Was able to stretch his leg out pretty well I do believe it helped. He was less tender to his back when I palpated the area. We did have Physical therapy coming work with him. He was able to move around the department and he does feel comfortable with discharge. Does have oxycodone at home. At this point there is not much further for us to do in the emergency department. I will discharge him home with Flexeril, Toradol, prednisone. Discharge Plan Discharge Clinical Impression: Strain of lumbar region Qualifiers: Encounter type: initial encounter Qualified Code(s): S39.012A - Strain of muscle, fascia and tendon of lower back, initial encounter Patient Disposition: Home, Self-Care Condition: Stable Instructions: Back Pain (ED), P.R.I.C.E. Treatment (ED) Additional Instructions: I prescribed Flexeril, Toradol, prednisone via instymeds. Please take these medications as directed. You will only take 4 more days of prednisone. Return to emergency department for new or worsening symptoms. Have close follow-up with your provider. Prescriptions: No Action spironolactone 25 mg tablet 25 mg PO DAILY tamsulosin 0.4 mg capsule PO lisinopril 10 mg tablet 10 mg PO DAILY finasteride 5 mg tablet 5 mg PO DAILY Jardiance 10 mg tablet 10 mg PO DAILY sacubitril-valsartan [Entresto] 24-26 mg tablet 1 tab PO BID Follow Up/Referrals: Provider,Not a Local [Primary Care Provider, Family Practice] Stand Alone Forms: [facility] Info Instructions
[2025-03-17] MEDS: MORPHINE 4 MG/ML INJ IM (09:08)
[2025-03-17] MEDS: CYCLOBENZAPRINE HCL 10 MG TABLET PO (09:09)
[2025-03-17] MEDS: LIDOCAINE 5% PATCH 1 PATCH TRANSDERMA (10:47)
== END 2025-03-17 12:22 | disposition home or self-care (01) ==
PROVIDERS: Emergency Provider Student in an Organized Health Care Education/Training Program
DX: S39.012A Strain of muscle, fascia and tendon of lower back, initial encounter (principal)
CPT/HCPCS: 96372; 97161; 99284; A9270; J1885; J2270; J7512